=== PATIENT | male | born 1980 | race Caucasian/White ===

== ENCOUNTER 2017-08-24 12:11 | Emergency (ER) | payer MEDICAID, MEDICARE ==
[2017-08-24 12:23] VITALS: TEMP 97.9
[2017-08-24] MEDS ORDERED: ASPIRIN 81 MG PO STA (12:30)
[2017-08-24] MEDS ORDERED: ORPHENADRINE 30 MG/ML 2 ML VIAL IVP STA (12:39)
[2017-08-24] MEDS ORDERED: KETOROLAC 30 MG/ML 1 ML VIAL IVP STA (12:39)
[2017-08-24 13:19] LABS: Basophils # (A) 0.1 k/uL (0-0.2); Basophils % (A) 1 %; CH 33.1; Eosinophils # (A) 0.2 k/uL (0-0.7); Eosinophils % (A) 4 %; HCT 50.5 % (39.0-53.0); HDW 2.28; HGB 16.4 gm/dL (13.0-17.5); Luc # (Auto) 0.11; Luc % (Auto) 2; Lymphocytes # (A) 1.8 k/uL (1.0-4.8); Lymphocytes % (A) 33 %; MCH 31.8 pg (25.0-35.0); MCHC 32.5 g/dL (31.0-37.0); MCV 97.8 fL (80.0-100.0); Mean Platelet Volume 7.5; Monocytes # (A) 0.5 k/uL (0-1.0); Monocytes % (A) 9 %; Neutrophils # (A) 2.8 k/uL (1.3-7.7); Neutrophils % (A) 51 %; RBC 5.16 m/uL (4.30-5.90); RDW 13.1 % (11.5-15.5); WBC 5.4 k/uL (3.8-10.6); WBC (Perox) 5.35
--- NOTE | 2017-08-24 13:26 | ED ---
Chest Pain HPI - General Chief Complaint: Chest Pain Stated Complaint: Chest Pain Time Seen by Provider: 08/24/17 12:25 Source: patient, RN notes reviewed Mode of arrival: ambulatory Limitations: no limitations - History of Present Illness Initial Comments: This a 37-year-old male presents emergency Department with chief complaint of pain behind his left shoulder blade. Patient states this has been present over the last 2-3 days. He states she's unsure if he injured it during working out. He states he does have some discomfort when he moves his shoulder. He states it feels like it's right underneath the tip of the shoulder blade. He denies any anterior chest pain. Patient states he has no cardiac history. States that he has a history of hypertension with no medications. Patient denies hyperlipidemia, smoking. He states he does have family history. Patient states she's been taking Nelson at home and states he tried supplement with some alcohol but did not help his pain. Patient denies any nausea, vomiting, diarrhea, constipation, abdominal pain, shortness breath, headache or dizziness - Related Data Home Medications Medication Instructions Recorded Confirmed Hydrocodone/Acetaminophen 1 tab PO QID PRN 06/25/14 08/24/17 [Hydrocodone/Acetaminophen 10-325] Omeprazole [PriLOSEC] 20 mg PO DAILY PRN 08/24/17 08/24/17 Venlafaxine HCl [Effexor XR] 225 mg PO DAILY 08/24/17 08/24/17 Allergies Allergy/AdvReac Type Severity Reaction Status Date / Time No Known Allergies Allergy Verified 08/24/17 12:39 Review of Systems ROS Statement: Those systems with pertinent positive or pertinent negative responses have been documented in the HPI. ROS Other: All systems not noted in ROS Statement are negative. EKG Findings - EKG Comments: EKG Findings:: EKG performed at 12:28 normal sinus rhythm with rate of 74 MA 160 QRS 92 QT/QTC 382/424 Past Medical History Additional Past Medical History / Comment(s): hiatal hernia History of Any Multi-Drug Resistant Organisms: C-DIFF Date of last positivie culture/infection: 2004 MDRO Source:: stool Past Surgical History: Orthopedic Surgery Past Psychological History: PTSD Smoking Status: Current every day smoker Past Alcohol Use History: Daily Past Drug Use History: None Reported General Exam Limitations: no limitations General appearance: alert, in no apparent distress Head exam: Present: atraumatic, normocephalic, normal inspection Eye exam: Present: normal appearance, PERRL, EOMI. Absent: scleral icterus, conjunctival injection, periorbital swelling Respiratory exam: Present: normal lung sounds bilaterally. Absent: respiratory distress, wheezes, rales, rhonchi, stridor, chest wall tenderness Cardiovascular Exam: Present: regular rate, normal rhythm, normal heart sounds. Absent: systolic murmur, diastolic murmur, rubs, gallop, clicks GI/Abdominal exam: Present: soft, normal bowel sounds. Absent: distended, tenderness, guarding, rebound, rigid Back exam: Present: other ( some tenderness along the left scapular region, in the muscular region) Neurological exam: Present: alert, oriented X3, CN II-XII intact, reflexes normal. Absent: motor sensory deficit Skin exam: Present: warm, dry, intact, normal color. Absent: rash Course Vital Signs 08/24/17 08/24/17 12:19 14:10 Temperature 97.9 F Pulse Rate 84 72 Respiratory 18 17 Rate Blood Pressure 157/99 140/92 O2 Sat by Pulse 100 98 Oximetry Chest Pain MDM - MDM 37-year-old male present emergency department for left shoulder pain. Patient has tenderness in the scapular region but the pain and subscapular region. Patient's EKG is unchanged from 3 years ago, lab work and troponin are negative at this time. Patient was offered admission for observation and evaluation with general manager [employer]. Patient states that he feels stable go home at this time. Patient was offered additional pain medication and muscle relaxer but states that he has this at home. Disposition Clinical Impression: Subscapular pain, Pain of left scapula Disposition: HOME SELF-CARE Condition: Stable Instructions: Shoulder Pain (ED) Additional Instructions: Please return to the Emergency Department if symptoms worsen or any other concerns. Referrals: Esa Sellers DO [Primary Care Provider] - 1-2 days Time of Disposition: 14:39
[2017-08-24 13:28] LABS: Partial Thromboplastin Time 25.6 sec (22.0-30.0); Prothrombin Time 10.4 sec (9.0-12.0)
[2017-08-24 13:36] LABS: ALT 138 U/L (21-72); AST 112 U/L (17-59); Alkaline Phosphatase 80 U/L (38-126); Amylase 33 U/L (30-110); Anion Gap 10 mmol/L; Blood Urea Nitrogen 15 mg/dL (9-20); Carbon Dioxide 24 mmol/L (22-30); Chloride 104 mmol/L (98-107); Glucose 98 mg/dL (74-99); Magnesium 2.1 mg/dL (1.6-2.3); Non-African American GFR(MDRD) >60 (>60 ml/min/1.73 sqM); Potassium 4.5 mmol/L (3.5-5.1); Sodium 138 mmol/L (137-145); Total Bilirubin 1.1 mg/dL (0.2-1.3); Total Protein 7.8 g/dL (6.3-8.2)
--- NOTE | 2017-08-24 13:37 | XR ---
EXAMINATION TYPE: XR chest 2V DATE OF EXAM: 08/24/2017 COMPARISON: Prior chest x-ray 09/15/2014 HISTORY: Chest pain TECHNIQUE: Frontal and lateral views of the chest are obtained. FINDINGS: There is no focal air space opacity, pleural effusion, or pneumothorax seen. The cardiac silhouette size is within normal limits. There are overlying cardiac leads. The osseous structures are intact. IMPRESSION: No acute cardiopulmonary process.
[2017-08-24 13:48] LABS: Creatine Kinase 98 U/L (55-170)
[2017-08-24 14:00] LABS: Creatine Kinase MB 0.5 ng/mL (0.0-2.4); Troponin I <0.012 ng/mL (0.000-0.034)
[2017-08-24 14:11] VITALS: RESP 17
[2017-08-24 14:49] VITALS: BP 136/93; PULSE 70
== END 2017-08-24 14:48 | disposition home or self-care (01) ==
LOC: EC 12:11
DX: M25.512 Pain in left shoulder (principal); I10 Essential (primary) hypertension; F17.200 Nicotine dependence, unspecified, uncomplicated; Z79.899 Other long term (current) drug therapy
CPT/HCPCS: 36415; 93005; 80053; 82150; 82550; 82553; 83690; 83735; 84484; 85025; 85610; 85730; 71020; 99285; 96374; 96375; J2360; J1885

== ENCOUNTER 2018-10-15 12:38 | Day surgery (SDC) | payer MEDICAID, MEDICARE ==
[2018-10-11 16:08] VITALS: BMI 31.1
[~2018-10-15 12:38] MED LIST: LACTATED RINGERS 1,000 ML IV SCH
[2018-10-15 12:57] VITALS: TEMP 97
[2018-10-15] MEDS ORDERED: LIDOCAINE 1% INJ 10MG/ML (20 ML MDV) ONE (13:15)
[2018-10-15] MEDS ORDERED: PROPOFOL 10 MG/ML 20 ML VIAL IV ONE (13:15)
--- NOTE | 2018-10-15 13:55 | P.OP ---
Date of Procedure: 10/15/18 Preoperative Diagnosis: Epigastric pain, change in bowel habits, rectal bleeding Postoperative Diagnosis: Same, mild esophagitis, mild gastritis Procedure(s) Performed: EGD with biopsy, colonoscopy with biopsy Anesthesia: MAC Surgeon: Jordana Moore Pathology: other Condition: stable Disposition: PACU Indications for Procedure: Patient presented with epigastric and abdominal pain along with change in bowel habits Description of Procedure: The patient's taken to the endoscopy suite were gastroscope is passed per mouth to the third and fourth portions of the duodenum. The pharynx is unremarkable. The upper esophagus is without evidence of esophagitis or mass lesion. There are some mild erythema of the distal esophagus and cold biopsies were obtained. The stomach shows some mild erythema in the antrum and cold biopsies were obtained. Otherwise the stomach, pylorus, duodenum without evidence of polyp, mass lesion, ulcer, other mucosal abnormality. The villous pattern of the duodenal appeared normal. Some cold biopsies were obtained to rule out villous blunting. He is then repositioned in a colonoscope is passed per rectum to the terminal ileum. He had good prep. There is some small internal hemorrhoid on retroflexion of the scope. Otherwise the colon and terminal ileum were without evidence of polyp, mass lesion, ulcer, other mucosal abnormality. Some random colonic biopsies were obtained to rule out microscopic colitis. He tolerated the procedure without difficulty and was taken recovery room in satisfactory condition. We'll call with the report of the biopsies. Plan - Discharge Summary New Discharge Prescriptions: No Action Hydrocodone/Acetaminophen [Hydrocodone/Acetaminophen 10-325] 1 tab PO QID PRN PRN Reason: Pain Venlafaxine HCl [Effexor XR] 225 mg PO DAILY Omeprazole [PriLOSEC] 20 mg PO DAILY PRN PRN Reason: Heartburn Discharge Medication List Hydrocodone/Acetaminophen [Hydrocodone/Acetaminophen 10-325] 1 tab PO QID PRN [History] Omeprazole [PriLOSEC] 20 mg PO DAILY PRN 08/24/17 [History] Venlafaxine HCl [Effexor XR] 225 mg PO DAILY 08/24/17 [History] Discharge Disposition: HOME SELF-CARE
[2018-10-15 14:02] VITALS: RESP 18
[2018-10-15 14:25] VITALS: BP 142/76; PULSE 80
== END 2018-10-15 14:30 | disposition home or self-care (01) ==
LOC: ORWHC2ENDO 12:38
PROVIDERS: ATTEND Surgery
DX: K29.70 Gastritis, unspecified, without bleeding (principal); K20.9 Esophagitis, unspecified; R10.13 Epigastric pain; R12 Heartburn; R19.4 Change in bowel habit; K62.5 Hemorrhage of anus and rectum; K64.8 Other hemorrhoids; K42.9 Umbilical hernia without obstruction or gangrene; F17.210 Nicotine dependence, cigarettes, uncomplicated; G89.29 Other chronic pain; Z79.899 Other long term (current) drug therapy
CPT/HCPCS: 88305; 45380; 43239; J2001; J2704; 45384

== ENCOUNTER 2019-08-13 03:19 | Emergency (ER) | payer MEDICAID, MEDICARE ==
[2019-08-13 03:29] VITALS: RESP 18; TEMP 97.8
[2019-08-13] MEDS ORDERED: HYDROcodone/APAP 7.5-325MG 1 EACH TAB PO ONE (04:02)
[2019-08-13] MEDS ORDERED: COLCHICINE 0.6 MG EACH PO STA (04:02)
[2019-08-13] MEDS ORDERED: predniSONE 20 MG TAB PO STA (04:02)
[2019-08-13] MEDS ORDERED: INDOMETHACIN 25 MG CAP PO STA (04:02)
--- NOTE | 2019-08-13 04:20 | ED ---
Lower Extremity Injury HPI - General Chief Complaint: Extremity Injury, Lower Stated Complaint: high blood pressure,gout Time Seen by Provider: 08/13/19 03:38 Source: patient Mode of arrival: wheelchair Limitations: no limitations, physical limitation - History of Present Illness Initial Comments: This patient is a 39-year-old man who presents to be evaluated for right foot pain and swelling. He states that his symptoms started approximately 3 days ago. Things were getting progressively worse so he was seen at the [facility] today. He states that while he was there he was diagnosed with having gout. He was given prescription for an anti-inflammatory, but he states that they wouldn't did not start any medications for him there. The patient states that after going home he noticed that he was feeling pain up towards his right ankle. Patient states that he does work out regularly. He states that he does drink daily. Patient denies any known injury to the foot. No fever or chills. MD Complaint: foot injury Onset/Timin -: days(s) Injury: Foot: Right, Toes: Right Place: home Severity: severe Improves With: nothing Worsens With: weight bearing, movement, palpation Associated Symptoms: swelling - Related Data Home Medications Medication Instructions Recorded Confirmed Hydrocodone/Acetaminophen 1 tab PO QID PRN 06/25/14 10/15/18 [Hydrocodone/Acetaminophen 10-325] Omeprazole [PriLOSEC] 20 mg PO DAILY PRN 08/24/17 10/15/18 Venlafaxine HCl [Effexor XR] 225 mg PO DAILY 08/24/17 10/15/18 Previous Rx's Medication Instructions Recorded Colchicine 0.6 mg PO Q1H #12 tablet 08/13/19 predniSONE 60 mg PO DAILY #30 tab 08/13/19 Allergies Allergy/AdvReac Type Severity Reaction Status Date / Time No Known Allergies Allergy Verified 08/13/19 03:29 Review of Systems ROS Statement: Those systems with pertinent positive or pertinent negative responses have been documented in the HPI. ROS Other: All systems not noted in ROS Statement are negative. Constitutional: Denies: fever, chills Respiratory: Denies: cough, dyspnea Cardiovascular: Denies: chest pain, palpitations Musculoskeletal: Reports: joint swelling, arthralgia Skin: Denies: rash Neurological: Denies: headache, weakness, numbness Past Medical History Past Medical History: GERD/Reflux Additional Past Medical History / Comment(s): elevated liver enzymes, hiatal hernia & umbical hernia, blood in stools recently History of Any Multi-Drug Resistant Organisms: C-DIFF Date of last positivie culture/infection: 2004 MDRO Source:: stool Past Surgical History: Orthopedic Surgery Additional Past Surgical History / Comment(s): repair of medial nerve left arm, colonoscopies Past Anesthesia/Blood Transfusion Reactions: No Reported Reaction Past Psychological History: PTSD Smoking Status: Current every day smoker Past Alcohol Use History: Abuse, Daily Past Drug Use History: None Reported - Past Family History Mother Family Medical History: No Reported History General Exam Limitations: no limitations, physical limitation General appearance: alert, in no apparent distress Head exam: Present: atraumatic, normocephalic Respiratory exam: Present: normal lung sounds bilaterally. Absent: respiratory distress, wheezes, rales, rhonchi, stridor Cardiovascular Exam: Present: regular rate, normal rhythm, normal heart sounds. Absent: systolic murmur, diastolic murmur, rubs, gallop Extremities exam: Present: other (Patient has erythema, warmth, soft tissue swelling and tenderness to the right first MTP joint. There is no break in the skin. Symptoms worsened with palpation or with range of motion.) Neurological exam: Present: alert. Absent: motor sensory deficit Skin exam: Present: warm, dry, intact, erythema. Absent: rash Course Vital Signs 08/13/19 08/13/19 03:26 04:22 Temperature 97.8 F Pulse Rate 80 82 Respiratory 18 18 Rate Blood Pressure 155/98 142/94 O2 Sat by Pulse 99 97 Oximetry Medical Decision Making - Medical Decision Making Patient is a 39-year-old man with textbook resent patient of gout. He is started on medications here and then requests to go home. We discussed return p arameters, the appropriate further care and follow-up. Disposition Clinical Impression: Gout Disposition: HOME SELF-CARE Condition: Good Instructions (If sedation given, give patient instructions): Low Purine Diet (ED), Gout (ED) Prescriptions: Colchicine 0.6 mg PO Q1H #12 tablet predniSONE 60 mg PO DAILY #30 tab Is patient prescribed a controlled substance at d/c from ED?: No When asked, does pt state using other controlled substances?: No Referrals: [facility] [Primary Care Provider] - 1-2 days
[2019-08-13 04:22] VITALS: BP 142/94; PULSE 82
== END 2019-08-13 04:41 | disposition home or self-care (01) ==
LOC: EC 03:19
DX: M10.9 Gout, unspecified (principal); S99.921A Unspecified injury of right foot, initial encounter; K21.9 Gastro-esophageal reflux disease without esophagitis; F43.10 Post-traumatic stress disorder, unspecified; Z79.899 Other long term (current) drug therapy; F17.200 Nicotine dependence, unspecified, uncomplicated; X58.XXXA Exposure to other specified factors, initial encounter
CPT/HCPCS: 99283; J7512

== ENCOUNTER → 2019-09-09 | Outpatient (CLI) | payer MEDICAID, MEDICARE ==
--- NOTE | 2019-09-09 12:47 | EST ---
EXERCISE STRESS AGE: 39 SEX: M HT: 69" WT: 212 PROTOCOL: Alexander Stress Test STAGE: 4 DURATION OF EXERCISE: 9:30 HEART RATE REST: 83 BLOOD PRESSURE REST: 138/99 MAXIMUM HEART RATE ACHIEVED: 157 MAXIMUM BLOOD PRESSURE: 204/105 85% MPHR: 154 100% MPHR: 181 METS: 11.1 INDICATIONS: Chest pain. CLINICAL INFORMATION: Baseline EKG shows sinus rhythm, normal axis, normal intervals. Patient exercised on Alexander protocol for a total of 9.5 minutes achieving 11 METS, 86% of predicted maximal heart rate without chest pain or diagnostic ST-segment depression. CONCLUSION: 1. Excellent exercise tolerance. 2. Negative stress test by EKG criteria. MMODL / IJN: [id number] /
== END | disposition home or self-care (01) ==
LOC: RADNMMAIN 10:36
PROVIDERS: ATTEND Family Medicine
DX: I10 Essential (primary) hypertension (principal)
CPT/HCPCS: 93017

== ENCOUNTER 2020-06-18 20:42 | Emergency (ER) | payer MEDICARE, MEDICAID ==
[2020-06-18 20:51] VITALS: BP 164/100; PULSE 91; RESP 20; TEMP 98.2
[2020-06-18] MEDS ORDERED: predniSONE 20 MG TAB PO STA (21:29)
[2020-06-18] MEDS ORDERED: COLCHICINE 0.6 MG EACH PO STA (21:30)
[2020-06-18] MEDS ORDERED: INDOMETHACIN 25 MG CAP PO STA (21:30)
--- NOTE | 2020-06-18 21:35 | ED ---
General Adult HPI - General Chief complaint: Extremity Injury, Lower Stated complaint: Gout - L Foot Pain Time Seen by Provider: 06/18/20 20:58 Source: patient, family Mode of arrival: ambulatory Limitations: no limitations - History of Present Illness Initial comments: 39-year-old male with a past medical history of GERD, elevated liver enzymes, hiatal hernia, gout presents to the emergency department for a chief of gout attack. Patient reports that his gout has been acting up for the past 2 days. States it is in his left foot. States this has happened before he came here and had a cocktail and he felt better. Patient did take indomethacin and colchicine earlier today. He only took indomethacin once. He only took colchicine once. He denies fevers or chills. Patient has no other complaints at this time including shortness of breath, chest pain, abdominal pain, nausea or vomiting, headache, or visual changes. - Related Data Home Medications Medication Instructions Recorded Confirmed Hydrocodone/Acetaminophen 1 tab PO QID PRN 06/25/14 10/15/18 [Hydrocodone/Acetaminophen 10-325] Omeprazole [PriLOSEC] 20 mg PO DAILY PRN 08/24/17 10/15/18 Venlafaxine HCl [Effexor XR] 225 mg PO DAILY 08/24/17 10/15/18 Previous Rx's Medication Instructions Recorded Colchicine 0.6 mg PO Q1H #12 tablet 08/13/19 predniSONE 60 mg PO DAILY #30 tab 08/13/19 Allergies Allergy/AdvReac Type Severity Reaction Status Date / Time No Known Allergies Allergy Verified 06/18/20 20:50 Review of Systems ROS Statement: Those systems with pertinent positive or pertinent negative responses have been documented in the HPI. ROS Other: All systems not noted in ROS Statement are negative. Past Medical History Past Medical History: GERD/Reflux Additional Past Medical History / Comment(s): elevated liver enzymes, hiatal hernia & umbical hernia, blood in stools recently, Gout History of Any Multi-Drug Resistant Organisms: C-DIFF Date of last positivie culture/infection: 2004 MDRO Source:: stool Past Surgical History: Orthopedic Surgery Additional Past Surgical History / Comment(s): repair of medial nerve left arm, colonoscopies Past Anesthesia/Blood Transfusion Reactions: No Reported Reaction Past Psychological History: PTSD Smoking Status: Current every day smoker Past Alcohol Use History: Abuse, Daily Past Drug Use History: None Reported - Past Family History Mother Family Medical History: No Reported History General Exam Limitations: no limitations General appearance: alert, in no apparent distress Head exam: Present: atraumatic, normocephalic, normal inspection Eye exam: Present: normal appearance ENT exam: Present: normal exam, mucous membranes moist Neck exam: Present: normal inspection, full ROM. Absent: tenderness, meningismus, lymphadenopathy Respiratory exam: Present: normal lung sounds bilaterally. Absent: respiratory distress, wheezes, rales, rhonchi, stridor Cardiovascular Exam: Present: regular rate, normal rhythm, normal heart sounds. Absent: systolic murmur, diastolic murmur, rubs, gallop, clicks GI/Abdominal exam: Present: soft, normal bowel sounds. Absent: distended, tenderness, guarding, rebound, rigid Extremities exam: Present: tenderness (Tenderness noted to the left great toe with erythema.), normal capillary refill (Capillary refill less than 2 seconds, DP pulse 2+ in the left lower extremity) Neurological exam: Present: alert Course Vital Signs 06/18/20 20:46 Temperature 98.2 F Pulse Rate 91 Respiratory 20 Rate Blood Pressure 164/100 O2 Sat by Pulse 100 Oximetry Medical Decision Making - Medical Decision Making Patient will be treated with colchicine, prednisone, indomethacin. He will take his indomethacin as prescribed 3 times per day at home. He will follow up with primary care. He'll return for any worsening symptoms. 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 Disposition Clinical Impression: Gout attack Disposition: HOME SELF-CARE Condition: Good Instructions (If sedation given, give patient instructions): Gout (ED) Additional Instructions: Please take your indomethacin 3 times daily for 3-5 days. Do not drink alcohol or eat red meat. Follow-up with your doctor. Return for any worsening symptoms. Is patient prescribed a controlled substance at d/c from ED?: No Referrals: Liam Miramontes DO [Primary Care Provider] - 1-2 days Time of Disposition: 21:34
== END 2020-06-18 22:22 | disposition home or self-care (01) ==
LOC: EC 20:42
DX: M10.9 Gout, unspecified (principal); K21.9 Gastro-esophageal reflux disease without esophagitis; F43.10 Post-traumatic stress disorder, unspecified; F17.200 Nicotine dependence, unspecified, uncomplicated; F10.10 Alcohol abuse, uncomplicated; Z79.899 Other long term (current) drug therapy; Z98.890 Other specified postprocedural states
CPT/HCPCS: 99283; J7512

== ENCOUNTER 2022-08-14 16:34 | Emergency (ER) | payer MEDICARE, OTHER ==
[2022-08-14 17:03] VITALS: TEMP 98.4
[2022-08-14] MEDS ORDERED: chlordiazePOXIDE 25 MG CAP PO PRN ×4 (17:38)
[2022-08-14] MEDS ORDERED: THIAMINE 100 MG/ML 2 ML VIAL IM STA (17:38)
[2022-08-14] MEDS ORDERED: KETOROLAC 15 MG/ML 1 ML VIAL IVP STA (17:38)
[2022-08-14] MEDS ORDERED: FOLIC ACID 1 MG TAB PO SCH (17:45)
[2022-08-14 18:09] LABS: Basophils # (A) 0.1 k/uL (0-0.2); Basophils % (A) 1 %; Eosinophils # (A) 0.1 k/uL (0-0.7); Eosinophils % (A) 1 %; HCT 47.3 % (39.0-53.0); HGB 16.4 gm/dL (13.0-17.5); Lymphocytes # (A) 0.6 k/uL (1.0-4.8); Lymphocytes % (A) 11 %; MCH 34.8 pg (25.0-35.0); MCHC 34.7 g/dL (31.0-37.0); MCV 100.5 fL (80.0-100.0); Mean Platelet Volume 7.9; Monocytes # (A) 0.4 k/uL (0-1.0); Monocytes % (A) 7 %; Neutrophils # (A) 4.2 k/uL (1.3-7.7); Neutrophils % (A) 78 %; Platelet Count 207 k/uL (150-450); RBC 4.71 m/uL (4.30-5.90); WBC 5.4 k/uL (3.8-10.6)
[2022-08-14 18:18] LABS: ALT 104 U/L (4-49); AST 148 U/L (17-59); African American GFR (CKD) >90 (>60 ml/min/1.73 sqM); Albumin 5.1 g/dL (3.5-5.0); Alkaline Phosphatase 124 U/L (38-126); Anion Gap 8 mmol/L; Blood Urea Nitrogen 11 mg/dL (9-20); Calcium 9.5 mg/dL (8.4-10.2); Carbon Dioxide 25 mmol/L (22-30); Chloride 106 mmol/L (98-107); Glucose 94 mg/dL (74-99); Non-African American GFR(CKD) >90 (>60 ml/min/1.73 sqM); Potassium 4.2 mmol/L (3.5-5.1); Sodium 139 mmol/L (137-145); Total Bilirubin 0.9 mg/dL (0.2-1.3); Total Protein 7.7 g/dL (6.3-8.2)
--- NOTE | 2022-08-14 18:37 | XR ---
EXAMINATION TYPE: XR chest 2V DATE OF EXAM: 08/14/2022 COMPARISON: 08/24/2017 HISTORY: Chest pain TECHNIQUE: 2 view FINDINGS: Heart and mediastinum are normal. Lungs are clear. Diaphragm is normal. Bony thorax is inta ct. IMPRESSION: Normal chest. No change.
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
[2022-08-14 19:40] VITALS: BP 153/74; PULSE 91; RESP 17
[2022-08-15] MEDS ORDERED: THIAMINE 100 MG TAB PO SCH (09:00)
== END 2022-08-14 19:40 | disposition home or self-care (01) ==
LOC: EC 16:34
DX: S29.001A Unspecified injury of muscle and tendon of front wall of thorax, initial encounter (principal); K21.9 Gastro-esophageal reflux disease without esophagitis; F17.200 Nicotine dependence, unspecified, uncomplicated; Z79.83 Long term (current) use of bisphosphonates; V18.0XXA Pedal cycle driver injured in noncollision transport accident in nontraffic accident, initial encounter
CPT/HCPCS: 99285; 96374; 96372; 36415; 93005; 80053; 84484; 85025; 71046; J3411; J1885

== ENCOUNTER 2023-02-27 16:12 | Emergency (ER) | payer OTHER, MEDICARE ==
[2023-02-27 16:29] VITALS: BP 159/101; PULSE 102; RESP 18; TEMP 98
[2023-02-27] MEDS ORDERED: LORazepam 1 MG TAB PO STA (17:14)
--- NOTE | 2023-02-27 17:15 | ED ---
General Adult HPI - General Chief complaint: Alcohol Stated complaint: DETOX Time Seen by Provider: 02/27/23 16:45 Source: patient, family, RN notes reviewed Mode of arrival: ambulatory Limitations: no limitations - History of Present Illness Initial comments: Patient is a pleasant 42-year-old male presenting to the emergency department desiring to discontinue alcohol. Patient feels he needs an abuse. Patient feels he needs to be punished when he drinks. Patient previously was at [facility] for cocaine use and originally did not want to go back there. Patient does admit to drinking multiple beers today. Patient does not feel he is going through detox at this time however is worried that he maintain the future. No suicidal or homicidal thoughts. - Related Data Home Medications Medication Instructions Recorded Confirmed Hydrocodone/Acetaminophen 1 tab PO QID PRN 06/25/14 10/15/18 [Hydrocodone/Acetaminophen 10-325] Omeprazole [PriLOSEC] 20 mg PO DAILY PRN 08/24/17 10/15/18 Venlafaxine HCl [Effexor XR] 225 mg PO DAILY 08/24/17 10/15/18 Previous Rx's Medication Instructions Recorded Colchicine 0.6 mg PO Q1H #12 tablet 08/13/19 predniSONE 60 mg PO DAILY #30 tab 08/13/19 Allergies Allergy/AdvReac Type Severity Reaction Status Date / Time No Known Allergies Allergy Verified 02/27/23 16:26 Review of Systems ROS Statement: Those systems with pertinent positive or pertinent negative responses have been documented in the HPI. ROS Other: All systems not noted in ROS Statement are negative. Constitutional: Denies: fever Eyes: Denies: eye pain ENT: Denies: ear pain Respiratory: Denies: cough Cardiovascular: Denies: chest pain Endocrine: Denies: fatigue Gastrointestinal: Denies: abdominal pain Genitourinary: Denies: dysuria Past Medical History Past Medical History: GERD/Reflux Additional Past Medical History / Comment(s): elevated liver enzymes, hiatal hernia & umbical hernia, blood in stools recently, Gout History of Any Multi-Drug Resistant Organisms: C-DIFF Date of last positivie culture/infection: 2004 MDRO Source:: stool Past Surgical History: Orthopedic Surgery Additional Past Surgical History / Comment(s): repair of medial nerve left arm, colonoscopies Past Anesthesia/Blood Transfusion Reactions: No Reported Reaction Past Psychological History: PTSD Smoking Status: Current every day smoker Past Alcohol Use History: Abuse, Daily Past Drug Use History: None Reported - Past Family History Mother Family Medical History: No Reported History General Exam Limitations: no limitations General appearance: alert, in no apparent distress Head exam: Present: atraumatic Eye exam: Present: normal appearance Respiratory exam: Present: normal lung sounds bilaterally Cardiovascular Exam: Present: regular rate, normal rhythm GI/Abdominal exam: Present: soft. Absent: tenderness Extremities exam: Present: normal inspection Neurological exam: Present: alert Psychiatric exam: Present: normal affect, normal mood Skin exam: Present: normal color Course Vital Signs 02/27/23 16:26 Temperature 98 F Pulse Rate 102 H Respiratory 18 Rate Blood Pressure 159/101 O2 Sat by Pulse 97 Oximetry Medical Decision Making - Medical Decision Making Was pt. sent in by a medical professional or institution (, PA, NANOTECHNOLOGY ENGINEERING TECHNICIAN, urgent care, hospital, or fci...) When possible be specific @ -No Did you speak to anyone other than the patient for history (EMS, parent, family, police, friend...)? What history was obtained from this source @ - is present and helps provide history including amount of alcohol the patient drinks. Did you review nursing and triage notes (agree or disagree)? Why? @ -I reviewed and agree with nursing and triage notes Were old charts reviewed (outside hosp., previous admission, EMS record, old EKG, old radiological studies, urgent care reports/EKG's, fci records)? Report findings @ -No old charts were reviewed Differential Diagnosis (chest pain, altered mental status, abdominal pain women, abdominal pain men, vaginal bleeding, weakness, fever, dyspnea, syncope, headache, dizziness, GI bleed, back pain, seizure, CVA, palpatations, mental health)? @ -not applicable EKG interpreted by me (3pts min.). @ -As above X-rays interpreted by me (1pt min.). @ -None done CT interpreted by me (1pt min.). @ -None done U/S interpreted by me (1pt. min.). @ -None done What testing was considered but not performed or refused? (CT, X-rays, U/S, labs)? Why? @ -None What meds were considered but not given or refused? Why? @ -None Did you discuss the management of the patient with other professionals (professionals i.e. , PA, NANOTECHNOLOGY ENGINEERING TECHNICIAN, lab, RT, psych nurse, social welfare administrator, medical transcription editor, teacher, financial officer, rn field case manager)? Give summary @ -No Was smoking cessation discussed for >3mins.? @ -No Was critical care preformed (if so, how long)? @ -No Were there social determinants of health that impacted care today? How? (Homelessness, low income, unemployed, alcoholism, drug addiction, transportation, low edu. Level, literacy, decrease access to med. care, fdc, rehab)? @ -No Was there de-escalation of care discussed even if they declined (Discuss DNR or withdrawal of care, Hospice)? DNR status @ -No What co-morbidities impacted this encounter? (DM, HTN, Smoking, COPD, CAD, Cancer, CVA, ARF, Chemo, Hep., AIDS, mental health diagnosis, sleep apnea, morbid obesity)? @ -None Was patient admitted / discharged? Hospital course, mention meds given and route, prescriptions, significant lab abnormalities, going to OR and other pertinent info. @ -Patient will be discharged and recommended follow-up with rehab facility. Patient will be given an Ativan to cut and take it home. He is instructed regarding this. Undiagnosed new problem with uncertain prognosis? @ -No Drug Therapy requiring intensive monitoring for toxicity (Heparin, Nitro, Insulin, Cardizem)? @ -No Were any procedures done? @ -No Diagnosis/symptom? @ -Alcohol abuse Acute, or Chronic, or Acute on Chronic? @ -Acute Uncomplicated (without systemic symptoms) or Complicated (systemic symptoms)? @ -default Side effects of treatment? @ -No Exacerbation, Progression, or Severe Exacerbation? @ -No Poses a threat to life or bodily function? How? (Chest pain, [place], [place], pneumonia, PE, COPD, DKA, ARF, appy, cholecystitis, CVA, Diverticulitis, Homicidal, Suicidal, threat to staff... and all critical care pts) @ -No Disposition Clinical Impression: Alcoholic intoxication, Alcohol abuse Disposition: HOME SELF-CARE Condition: Stable Instructions (If sedation given, give patient instructions): Alcohol Intoxication (ED), Alcohol Withdrawal (ED) Additional Instructions: Discontinue all alcohol use. You may cut the Ativan into quarters and take this over the next 2 days. Please follow-up with substance abuse rehab, list provided. Return for increased heart rate, uncontrolled vomiting, worsening or change in symptoms, confusion or other concerns. Is patient prescribed a controlled substance at d/c from ED?: No Referrals: Liam Miramontes DO [Primary Care Provider] - 1-2 days Forms: AA Meetings [facility], Outpatient Counseling, In Substance Abuse Facilities, AA Meetings [address] - [facility] Time of Disposition: 17:15
== END 2023-02-27 17:30 | disposition home or self-care (01) ==
LOC: EC 16:12
DX: F10.129 Alcohol abuse with intoxication, unspecified (principal); K21.9 Gastro-esophageal reflux disease without esophagitis; F17.200 Nicotine dependence, unspecified, uncomplicated; Z79.899 Other long term (current) drug therapy
CPT/HCPCS: 99283

== ENCOUNTER 2024-02-13 19:52 | Emergency (ER) | payer OTHER, MEDICARE ==
[2024-02-13 19:58] VITALS: TEMP 98.2
--- NOTE | 2024-02-13 21:22 | ED ---
Abdominal Pain HPI - General Chief Complaint: Abdominal Pain Stated Complaint: abd pain Time Seen by Provider: 02/13/24 21:01 Source: patient Mode of arrival: ambulatory Limitations: no limitations - History of Present Illness Initial Comments: 43-year-old male presenting with chief complaint of abdominal pain. Patient admits to sharp and burning pain in the epigastric and right upper quadrant region. Pain has been ongoing for the last day. He states he has been unable to eat due to the pain. He has tried taking Pepto-Bismol and omeprazole without relief. He denies any nausea, vomiting, diarrhea. No hematochezia or melena. No fevers. No no chest pain or difficulty breathing. - Related Data Home Medications Medication Instructions Recorded Confirmed Hydrocodone/Acetaminophen 1 tab PO QID 06/25/14 02/27/23 [Hydrocodone/Acetaminophen 10-325] Clobetasol Propionate [Temovate 1 applic TOPICAL BID PRN 02/27/23 02/27/23 0.05% Oint] amLODIPine [Norvasc] 5 mg PO BID 02/27/23 02/27/23 methylPREDNISolone [Medrol Dose See Taper PO DIRECTED 02/27/23 02/27/23 Pack] Previous Rx's Medication Instructions Recorded Ondansetron Odt [Zofran Odt] 4 mg PO Q8HR PRN #20 tab 02/13/24 Allergies Allergy/AdvReac Type Severity Reaction Status Date / Time No Known Allergies Allergy Verified 02/13/24 19:55 Review of Systems ROS Statement: Those systems with pertinent positive or pertinent negative responses have been documented in the HPI. ROS Other: All systems not noted in ROS Statement are negative. Past Medical History Past Medical History: GERD/Reflux Additional Past Medical History / Comment(s): elevated liver enzymes, hiatal hernia & umbical hernia, blood in stools recently, Gout History of Any Multi-Drug Resistant Organisms: C-DIFF Date of last positivie culture/infection: 2004 MDRO Source:: stool Past Surgical History: Orthopedic Surgery Additional Past Surgical History / Comment(s): repair of medial nerve left arm, colonoscopies Past Anesthesia/Blood Transfusion Reactions: No Reported Reaction Past Psychological History: PTSD Smoking Status: Current every day smoker Past Alcohol Use History: Abuse, Daily Past Drug Use History: None Reported - Past Family History Mother Family Medical History: No Reported History General Exam Limitations: no limitations General appearance: alert, in no apparent distress Head exam: Present: atraumatic, normocephalic Eye exam: Present: normal appearance, EOMI Neck exam: Present: normal inspection. Absent: meningismus Respiratory exam: Present: normal lung sounds bilaterally. Absent: respiratory distress, wheezes, rales, rhonchi, stridor Cardiovascular Exam: Present: regular rate, normal rhythm, normal heart sounds. Absent: systolic murmur, diastolic murmur, rubs, gallop, clicks GI/Abdominal exam: Present: soft, tenderness, guarding. Absent: distended, rebound, rigid Neurological exam: Present: alert, oriented X3 Psychiatric exam: Present: normal affect, normal mood Skin exam: Present: warm, dry Course Vital Signs 02/13/24 02/13/24 02/14/24 19:53 22:27 00:00 Temperature 98.2 F Pulse Rate 78 93 68 Respiratory 18 18 16 Rate Blood Pressure 153/94 163/102 141/96 O2 Sat by Pulse 100 100 100 Oximetry Medical Decision Making - Medical Decision Making Was pt. sent in by a medical professional or institution (, PA, CAREER DEVELOPMENT COORDINATOR, urgent care, hospital, or senior care...) When possible be specific @ -No Did you speak to anyone other than the patient for history (EMS, parent, family, police, friend...)? What history was obtained from this source @ -No Did you review nursing and triage notes (agree or disagree)? Why? @ -I reviewed and agree with nursing and triage notes Were old charts reviewed (outside hosp., previous admission, EMS record, old EKG, old radiological studies, urgent care reports/EKG's, senior care records)? Report findings @ -No old charts were reviewed Differential Diagnosis (chest pain, altered mental status, abdominal pain women, abdominal pain men, vaginal bleeding, weakness, fever, dyspnea, syncope, headache, dizziness, GI bleed, back pain, seizure, CVA, palpatations, mental health, musculoskeletal)? @ -MDM Differential Abdominal Pain Men: Appendicitis, cholecystitis, diverticulosis, ischemic bowel, pancreatitis, hepatitis, UTI, gastroenteritis, AAA, incarcerated hernia, bowel obstruction, constipation, inflammatory bowel, hepatitis, peptic ulcer disease, splenic infarction, perforated viscus, testicular torsion... This is not meant to be an all-inclusive list EKG interpreted by me (3pts min.). @ -As above X-rays interpreted by me (1pt min.). @ -None done CT interpreted by me (1pt min.). @ -None done U/S interpreted by me (1pt. min.). @ -Ultrasound shows hepatomegaly and hepatic steatosis What testing was considered but not performed or refused? (CT, X-rays, U/S, labs)? Why? @ -None What meds were considered but not given or refused? Why? @ -None Did you discuss the management of the patient with other professionals (professionals i.e. , PA, CAREER DEVELOPMENT COORDINATOR, lab, RT, psych nurse, social service worker, acquisition marketing coordinator, teacher, education officer, family caseworker)? Give summary @ -No Was smoking cessation discussed for >3mins.? @ -No Was critical care preformed (if so, how long)? @ -No Were there social determinants of health that impacted care today? How? (Homelessness, low income, unemployed, alcoholism, drug addiction, transportation, low edu. Level, literacy, decrease access to med. care, correction, rehab)? @ -No Was there de-escalation of care discussed even if they declined (Discuss DNR or withdrawal of care, Hospice)? DNR status @ -No What co-morbidities impacted this encounter? (DM, HTN, Smoking, COPD, CAD, Cancer, CVA, ARF, Chemo, Hep., AIDS, mental health diagnosis, sleep apnea, morbid obesity)? @ -None Was patient admitted / discharged? Hospital course, mention meds given and route, prescriptions, significant lab abnormalities, going to OR and other pertinent info. @ -43-year-old male presenting with chief complaint of burning pain to the epigastric and right upper quadrant. History and physical exam are conducted. Patient has an elevated bilirubin and LFTs, likely attributed to his daily alcohol use. Lipase is 324. Urine shows no infectious process or bleeding. Ultrasound is positive for hepatic steatosis and hepatomegaly. On reassessment patient reports significant improvement in his pain. He is educated on today's results. Likely his pain is due to a combination of inflammation of the pancreas due to chronic alcohol use and hepatic steatosis. He is educated on supportive management at home. Instructed to follow liquid diet for the next 1 to 2 days. Provided with pain medication. Discharged home. Follow-up with PCP. Report back to ER with any new or worsening symptoms. Discussed return parameters and answered all questions. Patient conveyed verbal understanding and agreed to the plan. I discussed this case in detail with my attending Dr. Cruz Undiagnosed new problem with uncertain prognosis? @ -No Drug Therapy requiring intensive monitoring for toxicity (Heparin, Nitro, Insulin, Cardizem)? @ -No Were any procedures done? @ -No Diagnosis/symptom? @ -Alcoholic hepatitis, abdominal pain, pancreatitis Acute, or Chronic, or Acute on Chronic? @ -Acute Uncomplicated (without systemic symptoms) or Complicated (systemic symptoms)? @ -Uncomplicated Side effects of treatment? @ -No Exacerbation, Progression, or Severe Exacerbation? @ -No Poses a threat to life or bodily function? How? (Chest pain, [place], [place], pneumonia, PE, COPD, DKA, ARF, appy, cholecystitis, CVA, Diverticulitis, Homicidal, Suicidal, threat to staff... and all critical care pts) @ -Low likelihood - Lab Data Result diagrams: 02/13/24 21:33 02/13/24 21:33 Lab Results 02/13/24 02/13/24 02/13/24 Range/Units 21:28 21:33 21:33 WBC 3.4 L (3.8-10.6) k/uL RBC 3.81 L (4.30-5.90) m/uL Hgb 13.7 (13.0-17.5) gm/dL Hct 39.6 (39.0-53.0) % MCV 104.0 H (80.0-100.0) fL MCH 36.0 H (25.0-35.0) pg MCHC 34.6 (31.0-37.0) g/dL RDW 11.2 L (11.5-15.5) % Plt Count 99 L (150-450) k/uL MPV 9.0 Neutrophils % 60 % Lymphocytes % 21 % Monocytes % 12 % Eosinophils % 2 % Basophils % 1 % Neutrophils # 2.1 (1.3-7.7) k/uL Lymphocytes # 0.7 L (1.0-4.8) k/uL Monocytes # 0.4 (0-1.0) k/uL Eosinophils # 0.1 (0-0.7) k/uL Basophils # 0.0 (0-0.2) k/uL Manual Slide Review Performed Large Platelets Present Sodium 136 L (137-145) mmol/L Potassium 4.0 (3.5-5.1) mmol/L Chloride 103 (98-107) mmol/L Carbon Dioxide 22 (22-30) mmol/L Anion Gap 11 mmol/L BUN <2 L (9-20) mg/dL Creatinine 0.52 L (0.66-1.25) mg/dL Est GFR (CKD-EPI)AfAm >90 (>60 ml/min/1.73 sqM) Est GFR (CKD-EPI)NonAf >90 (>60 ml/min/1.73 sqM) Glucose 82 (74-99) mg/dL Plasma Lactic Acid Lucio (0.7-2.0) mmol/L Calcium 9.3 (8.4-10.2) mg/dL Total Bilirubin 1.5 H (0.2-1.3) mg/dL AST 167 H (17-59) U/L ALT 90 H (4-49) U/L Alkaline Phosphatase 133 H (38-126) U/L Troponin I (0.000-0.034) ng/mL Total Protein 7.2 (6.3-8.2) g/dL Albumin 4.3 (3.5-5.0) g/dL Amylase 40 (30-110) U/L Lipase 324 H (23-300) U/L Urine Color Colorless Urine Appearance Clear (Clear) Urine pH 5.5 (5.0-8.0) Ur Specific [place] 1.002 (1.001-1.035) Urine Protein Negative (Negative) Urine Glucose (UA) Negative (Negative) Urine Ketones Negative (Negative) Urine Blood Negative (Negative) Urine Nitrite Negative (Negative) Urine Bilirubin Negative (Negative) Urine Urobilinogen <2.0 (<2.0) mg/dL Ur Leukocyte Esterase Negative (Negative) 02/13/24 02/13/24 Range/Units 21:33 21:33 WBC (3.8-10.6) k/uL RBC (4.30-5.90) m/uL Hgb (13.0-17.5) gm/dL Hct (39.0-53.0) % MCV (80.0-100.0) fL MCH (25.0-35.0) pg MCHC (31.0-37.0) g/dL RDW (11.5-15.5) % Plt Count (150-450) k/uL MPV Neutrophils % % Lymphocytes % % Monocytes % % Eosinophils % % Basophils % % Neutrophils # (1.3-7.7) k/uL Lymphocytes # (1.0-4.8) k/uL Monocytes # (0-1.0) k/uL Eosinophils # (0-0.7) k/uL Basophils # (0-0.2) k/uL Manual Slide Review Large Platelets Sodium (137-145) mmol/L Potassium (3.5-5.1) mmol/L Chloride (98-107) mmol/L Carbon Dioxide (22-30) mmol/L Anion Gap mmol/L BUN (9-20) mg/dL Creatinine (0.66-1.25) mg/dL Est GFR (CKD-EPI)AfAm (>60 ml/min/1.73 sqM) Est GFR (CKD-EPI)NonAf (>60 ml/min/1.73 sqM) Glucose (74-99) mg/dL Plasma Lactic Acid Lucio 1.9 (0.7-2.0) mmol/L Calcium (8.4-10.2) mg/dL Total Bilirubin (0.2-1.3) mg/dL AST (17-59) U/L ALT (4-49) U/L Alkaline Phosphatase (38-126) U/L Troponin I <0.012 (0.000-0.034) ng/mL Total Protein (6.3-8.2) g/dL Albumin (3.5-5.0) g/dL Amylase (30-110) U/L Lipase (23-300) U/L Urine Color Urine Appearance (Clear) Urine pH (5.0-8.0) Ur Specific [place] (1.001-1.035) Urine Protein (Negative) Urine Glucose (UA) (Negative) Urine Ketones (Negative) Urine Blood (Negative) Urine Nitrite (Negative) Urine Bilirubin (Negative) Urine Urobilinogen (<2.0) mg/dL Ur Leukocyte Esterase (Negative) Disposition Clinical Impression: Abdominal pain, Alcoholic hepatitis, Pancreatitis Disposition: HOME SELF-CARE Condition: Good Instructions (If sedation given, give patient instructions): Pancreatitis (ED), Abdominal Pain (ED), Full Liquid Diet (DC) Additional Instructions: Follow-up with PCP. Report back to ER with any new or worsening symptoms. Take medication as prescribed. Follow liquid diet for the next 1 to 2 days and gradually reintroduce regular foods. Prescriptions: Ondansetron Odt [Zofran Odt] 4 mg PO Q8HR PRN #20 tab PRN Reason: Nausea Is patient prescribed a controlled substance at d/c from ED?: No Referrals: Liam Miramontes DO [Primary Care Provider] - 1-2 days Time of Disposition: 23:55
[2024-02-13] MEDS: SODIUM CHLORIDE 0.9% 1,000 ML IV STA (21:35)
[2024-02-13 21:38] LABS: Appearance,Urine Clear (Clear); Bilirubin,Urine Negative (Negative); Blood,Urine Negative (Negative); Color,Urine Colorless; Glucose,Urine (UA) Negative (Negative); Ketones,Urine Negative (Negative); Leukocyte Esterase,Urine Negative (Negative); Nitrite,Urine Negative (Negative); PH, Urine 5.5 (5.0-8.0); Protein,Urine Negative (Negative); Specific Gravity,Urine 1.002 (1.001-1.035); Urobilinogen,Urine <2.0 mg/dL (<2.0)
[2024-02-13] MEDS: ONDANSETRON 4 MG/2 ML VIAL IVP STA (21:46)
[2024-02-13] MEDS: HYDROmorphone 1 MG/ML 1 ML SYRINGE IVP STA (21:48)
[2024-02-13 22:04] LABS: Basophils % (A) 1 %; Eosinophils # (A) 0.1 k/uL (0-0.7); Eosinophils % (A) 2 %; HCT 39.6 % (39.0-53.0); HGB 13.7 gm/dL (13.0-17.5); Lymphocytes # (A) 0.7 k/uL (1.0-4.8); Lymphocytes % (A) 21 %; MCHC 34.6 g/dL (31.0-37.0); Monocytes # (A) 0.4 k/uL (0-1.0); Monocytes % (A) 12 %; Neutrophils # (A) 2.1 k/uL (1.3-7.7); Neutrophils % (A) 60 %; RBC 3.81 m/uL (4.30-5.90); RDW 11.2 % (11.5-15.5); WBC 3.4 k/uL (3.8-10.6)
--- NOTE | 2024-02-13 22:26 | US ---
EXAM: US Abdomen Limited, Right Upper Quadrant CLINICAL HISTORY: ITS.REASON US Reason: RUQ/epigastric pain TECHNIQUE: Real-time ultrasound of the right upper quadrant with image documentation. COMPARISON: No relevant prior studies available. FINDINGS: Liver: Liver measures 19.5 cm. Increased echogenicity. No focal lesion. Gallbladder: No stones in the gallbladder. No inflammatory changes. Negative Olmos's. Common bile duct: Unremarkable as visualized. No stones. Pancreas: Unremarkable as visualized. Right kidney: Unremarkable. No hydronephrosis. IMPRESSION: Hepatomegaly and hepatic steatosis.
[2024-02-13 22:27] LABS: Large Platelets Present
[2024-02-13 22:28] LABS: Platelet Count 99 k/uL (150-450)
[2024-02-13 22:47] LABS: ALT 90 U/L (4-49); AST 167 U/L (17-59); African American GFR (CKD) >90 (>60 ml/min/1.73 sqM); Albumin 4.3 g/dL (3.5-5.0); Alkaline Phosphatase 133 U/L (38-126); Amylase 40 U/L (30-110); Anion Gap 11 mmol/L; Blood Urea Nitrogen <2 mg/dL (9-20); Calcium 9.3 mg/dL (8.4-10.2); Carbon Dioxide 22 mmol/L (22-30); Chloride 103 mmol/L (98-107); Glucose 82 mg/dL (74-99); Lipase 324 U/L (23-300); Non-African American GFR(CKD) >90 (>60 ml/min/1.73 sqM); Sodium 136 mmol/L (137-145); Total Bilirubin 1.5 mg/dL (0.2-1.3); Total Protein 7.2 g/dL (6.3-8.2)
[2024-02-13] MEDS: FAMOTIDINE 20 MG/2 ML VIAL IV STA (22:51)
[2024-02-13] MEDS: MAG HYDROX/AL HYDROX/SIMETH 30 ML, HYOSCYAMINE ELIXIR 10 ML, LIDOCAINE VISCOUS 2% 10 ML PO STA (22:52)
[2024-02-14] MEDS: traMADol 50 MG STARTER PACK 3 TAB BTL PO STA (00:02)
[2024-02-14 00:55] VITALS: BP 141/96; PULSE 68; RESP 16
== END 2024-02-14 00:03 | disposition home or self-care (01) ==
LOC: EC 19:52
DX: K85.90 Acute pancreatitis without necrosis or infection, unspecified (principal); K70.10 Alcoholic hepatitis without ascites; F17.200 Nicotine dependence, unspecified, uncomplicated
CPT/HCPCS: 36415; 80053; 82150; 83605; 83690; 84484; 85025; 81003; 76705; 99284; 96374; 96375 ×2; 96361; J2405; J3490; J1170

== ENCOUNTER 2024-02-14 12:17 | Emergency (ER) | payer OTHER, MEDICARE ==
[2024-02-14] MEDS: SODIUM CHLORIDE 0.9% 2,000 ML IV STA (13:06)
[2024-02-14 13:12] LABS: Basophils % (A) 1 %; Eosinophils % (A) 1 %; HGB 14.7 gm/dL (13.0-17.5); Lymphocytes # (A) 0.5 k/uL (1.0-4.8); Lymphocytes % (A) 16 %; MCH 35.6 pg (25.0-35.0); MCHC 34.1 g/dL (31.0-37.0); MCV 104.4 fL (80.0-100.0); Macrocytosis Slight; Mean Platelet Volume 10.1; Monocytes # (A) 0.3 k/uL (0-1.0); Monocytes % (A) 8 %; Neutrophils # (A) 2.3 k/uL (1.3-7.7); Neutrophils % (A) 71 %; Platelet Count 100 k/uL (150-450); RBC 4.12 m/uL (4.30-5.90); RDW 11.4 % (11.5-15.5); WBC 3.3 k/uL (3.8-10.6)
[2024-02-14 13:41] LABS: ALT 88 U/L (4-49); AST 154 U/L (17-59); African American GFR (CKD) >90 (>60 ml/min/1.73 sqM); Albumin 4.8 g/dL (3.5-5.0); Alcohol <10 mg/dL; Alkaline Phosphatase 149 U/L (38-126); Anion Gap 10 mmol/L; Blood Urea Nitrogen 3 mg/dL (9-20); Calcium 9.6 mg/dL (8.4-10.2); Carbon Dioxide 22 mmol/L (22-30); Chloride 103 mmol/L (98-107); Glucose 107 mg/dL (74-99); Lipase 218 U/L (23-300); Magnesium 1.7 mg/dL (1.6-2.3); Non-African American GFR(CKD) >90 (>60 ml/min/1.73 sqM); Potassium 3.9 mmol/L (3.5-5.1); Sodium 135 mmol/L (137-145); Total Bilirubin 2.6 mg/dL (0.2-1.3); Total Protein 8.1 g/dL (6.3-8.2)
[2024-02-14] MEDS: ONDANSETRON 4 MG/2 ML VIAL IVP STA (13:41)
[2024-02-14] MEDS: LORazepam 2 MG/ML INJ IV STA (13:43)
[2024-02-14] MEDS: HYDROmorphone 0.5 MG/0.5 ML SYRINGE IVP STA (13:44)
[2024-02-14] MEDS: KETOROLAC 15 MG/ML 1 ML VIAL IVP STA (13:45)
--- NOTE | 2024-02-14 14:35 | ED ---
Abdominal Pain HPI - General Chief Complaint: Abdominal Pain Stated Complaint: abd pain Time Seen by Provider: 02/14/24 12:33 Source: patient, RN notes reviewed Mode of arrival: ambulatory Limitations: no limitations - History of Present Illness Initial Comments: 43-year-old male presents emergency department complaining of abdominal pain. Patient had increasing abdominal pain states he was seen here and did have an ultrasound was told that he may have pancreatitis he does admit that he drinks at least 20 beers a day. Patient states pain is getting worse he states he started to have withdrawal symptoms. Shaky, nauseated. Patient states pain is increasing does have some shoulder pain no chest pain. Denies fevers or chills. - Related Data Home Medications Medication Instructions Recorded Confirmed Hydrocodone/Acetaminophen 1 tab PO QID 06/25/14 02/27/23 [Hydrocodone/Acetaminophen 10-325] Clobetasol Propionate [Temovate 1 applic TOPICAL BID PRN 02/27/23 02/27/23 0.05% Oint] amLODIPine [Norvasc] 5 mg PO BID 02/27/23 02/27/23 methylPREDNISolone [Medrol Dose See Taper PO DIRECTED 02/27/23 02/27/23 Pack] Previous Rx's Medication Instructions Recorded Ondansetron Odt [Zofran Odt] 4 mg PO Q8HR PRN #20 tab 02/13/24 Ondansetron Odt [Zofran Odt] 4 mg PO Q8HR PRN #10 tab 02/14/24 chlordiazePOXIDE HCl [Librium] 25 mg PO QID #20 capsule 02/14/24 Allergies Allergy/AdvReac Type Severity Reaction Status Date / Time No Known Allergies Allergy Verified 02/14/24 12:32 Review of Systems ROS Statement: Those systems with pertinent positive or pertinent negative responses have been documented in the HPI. ROS Other: All systems not noted in ROS Statement are negative. Past Medical History Past Medical History: GERD/Reflux Additional Past Medical History / Comment(s): elevated liver enzymes, hiatal hernia & umbical hernia, blood in stools recently, Gout History of Any Multi-Drug Resistant Organisms: C-DIFF Date of last positivie culture/infection: 2004 MDRO Source:: stool Past Surgical History: Orthopedic Surgery Additional Past Surgical History / Comment(s): repair of medial nerve left arm, colonoscopies Past Anesthesia/Blood Transfusion Reactions: No Reported Reaction Past Psychological History: PTSD Smoking Status: Current every day smoker Past Alcohol Use History: Abuse, Daily Past Drug Use History: None Reported - Past Family History Mother Family Medical History: No Reported History General Exam Limitations: no limitations General appearance: alert, in no apparent distress Head exam: Present: atraumatic, normocephalic, normal inspection Eye exam: Present: normal appearance, PERRL, EOMI. Absent: scleral icterus, conjunctival injection, periorbital swelling ENT exam: Present: normal exam, mucous membranes moist Neck exam: Present: normal inspection, full ROM. Absent: tenderness, m eningismus, lymphadenopathy Respiratory exam: Present: normal lung sounds bilaterally. Absent: respiratory distress, wheezes, rales, rhonchi, stridor Cardiovascular Exam: Present: regular rate, normal rhythm, normal heart sounds. Absent: systolic murmur, diastolic murmur, rubs, gallop, clicks GI/Abdominal exam: Present: soft, tenderness, normal bowel sounds. Absent: distended, guarding, rebound, rigid Course Vital Signs 02/14/24 02/14/24 12:29 14:32 Temperature 98 F 98.2 F Pulse Rate 65 82 Respiratory 18 17 Rate Blood Pressure 171/96 165/90 O2 Sat by Pulse 98 98 Oximetry Medical Decision Making - Medical Decision Making Was pt. sent in by a medical professional or institution (, PA, ANALYTICAL LAB TECHNICIAN, urgent care, hospital, or jail...) When possible be specific @ -No Did you speak to anyone other than the patient for history (EMS, parent, family, police, friend...)? What history was obtained from this source @ -No Did you review nursing and triage notes (agree or disagree)? Why? @ -I reviewed and agree with nursing and triage notes Were old charts reviewed (outside hosp., previous admission, EMS record, old EKG, old radiological studies, urgent care reports/EKG's, jail records)? Report findings @ -Reviewed records from yesterday labs, ultrasound Differential Diagnosis (chest pain, altered mental status, abdominal pain women, abdominal pain men, vaginal bleeding, weakness, fever, dyspnea, syncope, headache, dizziness, GI bleed, back pain, seizure, CVA, palpatations, mental health, musculoskeletal)? @Differential Abdominal Pain Men: Appendicitis, cholecystitis, diverticulosis, ischemic bowel, pancreatitis, hepatitis, UTI, gastroenteritis, AAA, incarcerated hernia, bowel obstruction, constipation, inflammatory bowel, hepatitis, peptic ulcer disease, splenic infarction, perforated viscus, testicular torsion, this is not meant to be an all-inclusive list EKG interpreted by me (3pts min.). @ -[None X-rays interpreted by me (1pt min.). @ -None done CT interpreted by me (1pt min.). @ -CT pelvis showing fatty liver disease enlarged liver U/S interpreted by me (1pt. min.). @ -None done What testing was considered but not performed or refused? (CT, X-rays, U/S, lab s)? Why? @ -None What meds were considered but not given or refused? Why? @ -None Did you discuss the management of the patient with other professionals (professionals i.e. , PA, ANALYTICAL LAB TECHNICIAN, lab, RT, psych nurse, social contact worker, prospecting driller, teacher, investigation officer, classification case manager)? Give summary @ -No Was smoking cessation discussed for >3mins.? @ -No Was critical care preformed (if so, how long)? @ -No Were there social determinants of health that impacted care today? How? (Homelessness, low income, unemployed, alcoholism, drug addiction, transportation, low edu. Level, literacy, decrease access to med. care, skilled nursing, rehab)? @ -No Was there de-escalation of care discussed even if they declined (Discuss DNR or withdrawal of care, Hospice)? DNR status @ -No What co-morbidities impacted this encounter? (DM, HTN, Smoking, COPD, CAD, Cancer, CVA, ARF, Chemo, Hep., AIDS, mental health diagnosis, sleep apnea, morbid obesity)? @ -Alcohol use Was patient admitted / discharged? Hospital course, mention meds given and route, prescriptions, significant lab abnormalities, going to OR and other pertinent info. @ -[Discharge patient's lipase is improved patient does have transaminitis related to his alcohol abuse alcohol is negative. Patient patient feels greatly improved this time patient refrain from alcohol will be given medication for withdrawal and antiemetics. Undiagnosed new problem with uncertain prognosis? @ -No Drug Therapy requiring intensive monitoring for toxicity (Heparin, Nitro, Insulin, Cardizem)? @ -No Were any procedures done? @ -No Diagnosis/symptom? @ -[Abdominal pain, alcohol abuse Acute, or Chronic, or Acute on Chronic? @ -Acute Uncomplicated (without systemic symptoms) or Complicated (systemic symptoms)? @ -Uncomplicated Side effects of treatment? @ -No Exacerbation, Progression, or Severe Exacerbation? @ -No Poses a threat to life or bodily function? How? (Chest pain, [place], [place], pneumonia, PE, COPD, DKA, ARF, appy, cholecystitis, CVA, Diverticulitis, Homicidal, Suicidal, threat to staff... and all critical care pts) @ -No - Lab Data Result diagrams: 02/14/24 12:54 02/14/24 12:54 Lab Results 02/14/24 02/14/24 02/14/24 Range/Units 12:54 12:54 12:54 WBC 3.3 L (3.8-10.6) k/uL RBC 4.12 L (4.30-5.90) m/uL Hgb 14.7 (13.0-17.5) gm/dL Hct 43.0 (39.0-53.0) % MCV 104.4 H (80.0-100.0) fL MCH 35.6 H (25.0-35.0) pg MCHC 34.1 (31.0-37.0) g/dL RDW 11.4 L (11.5-15.5) % Plt Count 100 L (150-450) k/uL MPV 10.1 Neutrophils % 71 % Lymphocytes % 16 % Monocytes % 8 % Eosinophils % 1 % Basophils % 1 % Neutrophils # 2.3 (1.3-7.7) k/uL Lymphocytes # 0.5 L (1.0-4.8) k/uL Monocytes # 0.3 (0-1.0) k/uL Eosinophils # 0.0 (0-0.7) k/uL Basophils # 0.0 (0-0.2) k/uL Macrocytosis Slight Sodium 135 L (137-145) mmol/L Potassium 3.9 (3.5-5.1) mmol/L Chloride 103 (98-107) mmol/L Carbon Dioxide 22 (22-30) mmol/L Anion Gap 10 mmol/L BUN 3 L (9-20) mg/dL Creatinine 0.53 L (0.66-1.25) mg/dL Est GFR (CKD-EPI)AfAm >90 (>60 ml/min/1.73 sqM) Est GFR (CKD-EPI)NonAf >90 (>60 ml/min/1.73 sqM) Glucose 107 H (74-99) mg/dL Plasma Lactic Acid Lucio 1.2 (0.7-2.0) mmol/L Calcium 9.6 (8.4-10.2) mg/dL Magnesium 1.7 (1.6-2.3) mg/dL Total Bilirubin 2.6 H (0.2-1.3) mg/dL AST 154 H (17-59) U/L ALT 88 H (4-49) U/L Alkaline Phosphatase 149 H (38-126) U/L Total Protein 8.1 (6.3-8.2) g/dL Albumin 4.8 (3.5-5.0) g/dL Lipase 218 (23-300) U/L Serum Alcohol <10 mg/dL Disposition Clinical Impression: Abdominal pain, Alcoholic hepatitis, Alcohol abuse with withdrawal Disposition: HOME SELF-CARE Condition: Stable Instructions (If sedation given, give patient instructions): Abdominal Pain (ED) Additional Instructions: Please return to the Emergency Department if symptoms worsen or any other concerns. Prescriptions: chlordiazePOXIDE HCl [Librium] 25 mg PO QID #20 capsule Ondansetron Odt [Zofran Odt] 4 mg PO Q8HR PRN #10 tab PRN Reason: Nausea Is patient prescribed a controlled substance at d/c from ED?: Yes When asked, does pt state using other controlled substances?: No If prescribed controlled substance>3 days was MAPS reviewed?: Prescribed <3 Days Referrals: Liam Miramontes DO [Primary Care Provider] - 1-2 days Time of Disposition: 15:21
--- NOTE | 2024-02-14 15:09 | CT ---
EXAMINATION TYPE: CT abdomen pelvis w con DATE OF EXAM: 02/14/2024 COMPARISON: None HISTORY: Abdominal pain, pt was here yesterday and told it was pancreatitis CT DLP: 745.7 mGycm Automated exposure control for dose reduction was used. TECHNIQUE: Helical acquisition of images was performed from the lung bases through the pelvis. CONTRAST: Performed without Oral Contrast and with IV Contrast, patient injected with 100 mL of Isovue 300. FINDINGS: The lung bases are clear. The gallbladder is normal without distention, wall thickening, pericholecystic fluid or gallstones. T here is no biliary ductal dilatation. There is no focal mass or organomegaly involving the liver, pancreas, spleen or adrenal glands. There is marked fatty infiltration of the liver. There is no solid renal mass or hydronephrosis and there is homogeneous contrast enhancement of the r enal parenchyma. The caliber the abdominal aorta is normal is no retroperitoneal adenopathy or hemorr giuliana. The bowel loops are normal in caliber and there is no evidence of dilatation or obstruction. No infla mmatory changes are identified in the bowel wall or mesentery. There is no free intraperitoneal air or fluid. No pelvic mass, free fluid, abscess or adenopathy. There is a small periumbilical hernia containing fat. IMPRESSION: 1. Marked fatty infiltration liver. 2. small periumbilical hernia containing fat.
[2024-02-14] MEDS: ACET/COD 300 MG/30 MG STARTER PACK 6 TAB BTL PO STA (15:32)
[2024-02-14 15:56] VITALS: BP 147/90; PULSE 60; RESP 16; TEMP 97.4
== END 2024-02-14 15:38 | disposition home or self-care (01) ==
LOC: EC 12:17
DX: K70.10 Alcoholic hepatitis without ascites (principal); F10.139 Alcohol abuse with withdrawal, unspecified; F17.200 Nicotine dependence, unspecified, uncomplicated; Y90.0 Blood alcohol level of less than 20 mg/100 ml
CPT/HCPCS: 36415; 80053; 83605; 83690; 83735; 85025; 80320; 74177; 99285; 96374; 96375 ×3; 96361 ×2; J2060; J2405; J1885; J1170; Q9967

== ENCOUNTER 2024-03-16 13:59 | Emergency (ER) | payer OTHER, MEDICARE ==
--- NOTE | 2024-03-16 15:28 | ED ---
General Adult HPI - General Chief complaint: Recheck/Abnormal Lab/Rx Stated complaint: Both Leg Numbness Time Seen by Provider: 03/16/24 14:29 Source: patient, RN notes reviewed Mode of arrival: ambulatory Limitations: no limitations - History of Present Illness Initial comments: 43-year-old male presents to the emergency department for evaluation of bi lateral foot burning and tingling. He states that the symptoms have been going on for around 6 months but has been worse in the past 48 hours. He notes that his similar character to when he has been experiencing. He does report that he is seeing neurology for this. He does have an appointment with neurology tomorrow. He takes vicodin at home. Denies fever, chills. - Related Data Home Medications Medication Instructions Recorded Confirmed Hydrocodone/Acetaminophen 1 tab PO QID 06/25/14 02/27/23 [Hydrocodone/Acetaminophen 10-325] Clobetasol Propionate [Temovate 1 applic TOPICAL BID PRN 02/27/23 02/27/23 0.05% Oint] amLODIPine [Norvasc] 5 mg PO BID 02/27/23 02/27/23 methylPREDNISolone [Medrol Dose See Taper PO DIRECTED 02/27/23 02/27/23 Pack] Previous Rx's Medication Instructions Recorded Ondansetron Odt [Zofran Odt] 4 mg PO Q8HR PRN #20 tab 02/13/24 Ondansetron Odt [Zofran Odt] 4 mg PO Q8HR PRN #10 tab 02/14/24 chlordiazePOXIDE HCl [Librium] 25 mg PO QID #20 capsule 02/14/24 Vitamin B Complex 1 each PO DAILY #30 cap 03/16/24 Allergies Allergy/AdvReac Type Severity Reaction Status Date / Time No Known Allergies Allergy Verified 03/16/24 14:05 Review of Systems ROS Statement: Those systems with pertinent positive or pertinent negative responses have been documented in the HPI. ROS Other: All systems not noted in ROS Statement are negative. Past Medical History Past Medical History: GERD/Reflux Additional Past Medical History / Comment(s): elevated liver enzymes, hiatal hernia & umbical hernia, blood in stools recently, Gout History of Any Multi-Drug Resistant Organisms: C-DIFF Date of last positivie culture/infection: 2004 MDRO Source:: stool Past Surgical History: Orthopedic Surgery Additional Past Surgical History / Comment(s): repair of medial nerve left arm, colonoscopies Past Anesthesia/Blood Transfusion Reactions: No Reported Reaction Past Psychological History: PTSD Smoking Status: Current every day smoker Past Alcohol Use History: Abuse, Daily Past Drug Use History: None Reported - Past Family History Mother Family Medical History: No Reported History General Exam Limitations: no limitations General appearance: alert, in no apparent distress Head exam: Present: atraumatic, normocephalic, normal inspection Eye exam: Present: normal appearance, PERRL, EOMI. Absent: scleral icterus, conjunctival injection, periorbital swelling Respiratory exam: Present: normal lung sounds bilaterally. Absent: respiratory distress, wheezes, rales, rhonchi, stridor Cardiovascular Exam: Present: regular rate, normal rhythm, normal heart sounds. Absent: systolic murmur, diastolic murmur, rubs, gallop, clicks Extremities exam: Present: normal inspection, full ROM, normal capillary refill, other (DP and PT pulses 2+ ). Absent: tenderness, pedal edema, joint swelling, calf tenderness Neurological exam: Present: alert, oriented X3 Psychiatric exam: Present: normal affect, normal mood Skin exam: Present: warm, dry, intact, normal color. Absent: rash Course Vital Signs 03/16/24 03/16/24 14:00 15:38 Temperature 97.5 F L 98.1 F Pulse Rate 80 86 Respiratory 20 18 Rate Blood Pressure 162/100 176/86 O2 Sat by Pulse 100 99 Oximetry Medical Decision Making - Medical Decision Making Was pt. sent in by a medical professional or institution (, PA, PHARMACEUTICAL WORKER, urgent care, hospital, or prison...) When possible be specific @ -No Did you speak to anyone other than the patient for history (EMS, parent, family, police, friend...)? What history was obtained from this source @ -No Did you review nursing and triage notes (agree or disagree)? Why? @ -I reviewed and agree with nursing and triage notes Were old charts reviewed (outside hosp., previous admission, EMS record, old EKG, old radiological studies, urgent care reports/EKG's, prison records)? Report findings @ -No old charts were reviewed Differential Diagnosis (chest pain, altered mental status, abdominal pain women, abdominal pain men, vaginal bleeding, weakness, fever, dyspnea, syncope, headache, dizziness, GI bleed, back pain, seizure, CVA, palpatations, mental health, musculoskeletal)? @ -Differential Musculoskeletal Muscular strain, contusion, ligament sprain, fracture, arthritis, septic arthritis, bursitis, cellulitis, muscle spasm, nerve compression, DVT, arterial occlusion, herpes zoster, electrolyte abnormality, tumor.... This is not meant to be in all inclusive list EKG interpreted by me (3pts min.). @ -None X-rays interpreted by me (1pt min.). @ -None done CT interpreted by me (1pt min.). @ -None done U/S interpreted by me (1pt. min.). @ -None done What testing was considered but not performed or refused? (CT, X-rays, U/S, labs)? Why? @ -None What meds were considered but not given or refused? Why? @ -None Did you discuss the management of the patient with other professionals (professionals i.e. , PA, PHARMACEUTICAL WORKER, lab, RT, psych nurse, social worker clinical, phlebotomy tech, teacher, light armored vehicle officer, director of casework department)? Give summary @ -No Was smoking cessation discussed for >3mins.? @ -No Was critical care preformed (if so, how long)? @ -No Were there social determinants of health that impacted care today? How? (Homelessness, low income, unemployed, alcoholism, drug addiction, transportation, low edu. Level, literacy, decrease access to med. care, [facility], rehab)? @ -No Was there de-escalation of care discussed even if they declined (Discuss DNR or withdrawal of care, Hospice)? DNR status @ -No What co-morbidities impacted this encounter? (DM, HTN, Smoking, COPD, CAD, Cancer, CVA, ARF, Chemo, Hep., AIDS, mental health diagnosis, sleep apnea, morbid obesity)? @ -None Was patient admitted / discharged? Hospital course, mention meds given and route, prescriptions, significant lab abnormalities, going to OR and other pertinent info. @ -Discharged. Patient presented to the emergency department for evaluation of bilateral foot burning and tingling. Symptoms have been going on for 6 months. He denies any change in character of his symptoms. Patient requesting pain control. He has neurology appointment tomorrow. This seems to be a chronic issue. Patient provided pain control in ED. Prescription sent to patients pharmacy for B complex vitamin as patient has history of alcoholism. Patient understanding and agreeable with plan. Patient stable at time of discharge. Case discussed with Dr. Andrade Undiagnosed new problem with uncertain prognosis? @ -No Drug Therapy requiring intensive monitoring for toxicity (Heparin, Nitro, Insulin, Cardizem)? @ -No Were any procedures done? @ -No Diagnosis/symptom? @ -Bilateral lower extremity paresthesias Acute, or Chronic, or Acute on Chronic? @ -chronic Uncomplicated (without systemic symptoms) or Complicated (systemic symptoms)? @ -uncomplicated Side effects of treatment? @ -No Exacerbation, Progression, or Severe Exacerbation? @ -No Poses a threat to life or bodily function? How? (Chest pain, [place], [place], pneumonia, PE, COPD, DKA, ARF, appy, cholecystitis, CVA, Diverticulitis, Homicidal, Suicidal, threat to staff... and all critical care pts) @ -No Disposition Clinical Impression: Peripheral neuropathy Disposition: HOME SELF-CARE Condition: Stable Instructions (If sedation given, give patient instructions): Paresthesia (ED) Additional Instructions: Please follow up with your neurologist tomorrow as scheduled. Return to the emergency department for new or worsening symptoms. Prescriptions: Vitamin B Complex 1 each PO DAILY #30 cap Is patient prescribed a controlled substance at d/c from ED?: No Referrals: Liam Miramontes DO [Primary Care Provider] - 1-2 days
[2024-03-16] MEDS: HYDROmorphone 1 MG/ML 1 ML SYRINGE IM STA (15:30)
[2024-03-16] MEDS: LIDOCAINE 4% PATCH TOPICAL ONE (15:31)
[2024-03-16 15:40] VITALS: BP 176/86; PULSE 86; RESP 18; TEMP 98.1
== END 2024-03-16 15:46 | disposition home or self-care (01) ==
LOC: EC 13:59
DX: G62.9 Polyneuropathy, unspecified (principal); F17.200 Nicotine dependence, unspecified, uncomplicated
CPT/HCPCS: 99284; 96372; J1170

== ENCOUNTER 2024-04-06 00:49 | Emergency (ER) | payer OTHER, MEDICARE ==
[2024-04-06] MEDS: DIPH,PERTUS(ACELL)TETVAC-LF 0.5 ML VIAL IM ONE (01:26)
[2024-04-06] MEDS: LIDOCAINE 1% INJ 10MG/ML (20 ML MDV) SQ ONE (01:28)
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
[2024-04-06 04:23] VITALS: PULSE 90
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
[2024-04-06 05:34] VITALS: BP 96/53; RESP 20; TEMP 98.1
== END 2024-04-06 05:32 | disposition home or self-care (01) ==
LOC: EC 00:49
DX: S01.81XA Laceration without foreign body of other part of head, initial encounter (principal); F17.200 Nicotine dependence, unspecified, uncomplicated; Z23 Encounter for immunization; Y04.8XXA Assault by other bodily force, initial encounter
CPT/HCPCS: 72125; 70450; 90715; 12013; 99283; 90471; J2001

== ENCOUNTER 2024-04-07 16:03 | Emergency (ER) | payer OTHER, MEDICARE ==
[2024-04-07 16:10] VITALS: BP 159/94; PULSE 72; RESP 18; TEMP 97.4
--- NOTE | 2024-04-07 16:42 | ED ---
Extremity Problem HPI - General Chief complaint: Extremity Injury, Lower Stated complaint: Body Pain Time Seen by Provider: 04/07/24 16:25 Source: patient Mode of arrival: ambulatory Limitations: no limitations - Related Data Home Medications Medication Instructions Recorded Confirmed Hydrocodone/Acetaminophen 1 tab PO QID 06/25/14 02/27/23 [Hydrocodone/Acetaminophen 10-325] Clobetasol Propionate [Temovate 1 applic TOPICAL BID PRN 02/27/23 02/27/23 0.05% Oint] amLODIPine [Norvasc] 5 mg PO BID 02/27/23 02/27/23 methylPREDNISolone [Medrol Dose See Taper PO DIRECTED 02/27/23 02/27/23 Pack] Previous Rx's Medication Instructions Recorded Ondansetron Odt [Zofran Odt] 4 mg PO Q8HR PRN #20 tab 02/13/24 Ondansetron Odt [Zofran Odt] 4 mg PO Q8HR PRN #10 tab 02/14/24 chlordiazePOXIDE HCl [Librium] 25 mg PO QID #20 capsule 02/14/24 Vitamin B Complex 1 each PO DAILY #30 cap 03/16/24 Allergies Allergy/AdvReac Type Severity Reaction Status Date / Time No Known Allergies Allergy Verified 04/07/24 16:09 Review of Systems ROS Statement: Those systems with pertinent positive or pertinent negative responses have been documented in the HPI. ROS Other: All systems not noted in ROS Statement are negative. Past Medical History Past Medical History: GERD/Reflux Additional Past Medical History / Comment(s): elevated liver enzymes, hiatal hernia & umbical hernia, blood in stools recently, Gout History of Any Multi-Drug Resistant Organisms: C-DIFF Date of last positivie culture/infection: 2004 MDRO Source:: stool Past Surgical History: Orthopedic Surgery Additional Past Surgical History / Comment(s): repair of medial nerve left arm, colonoscopies Past Anesthesia/Blood Transfusion Reactions: No Reported Reaction Past Psychological History: PTSD Smoking Status: Current every day smoker Past Alcohol Use History: Abuse, Daily Past Drug Use History: None Reported - Past Family History Mother Family Medical History: No Reported History General Exam Limitations: no limitations Course Vital Signs 04/07/24 16:07 Temperature 97.4 F L Pulse Rate 72 Respiratory 18 Rate Blood Pressure 159/94 O2 Sat by Pulse 100 Oximetry Disposition Referrals: Liam Miramontes DO [Primary Care Provider] - 1-2 days
== END 2024-04-07 17:12 | disposition left against medical advice (07) ==
LOC: EC 16:03
DX: Z53.29 Procedure and treatment not carried out because of patient's decision for other reasons (principal)
CPT/HCPCS: 99499

== ENCOUNTER 2024-07-25 06:15 | Emergency (ER) | payer OTHER, MEDICARE ==
[2024-07-25 06:28] VITALS: RESP 18
--- NOTE | 2024-07-25 06:50 | ED ---
Chest Pain HPI - General Chief Complaint: Chest Pain Stated Complaint: CP/Vomitting Time Seen by Provider: 07/25/24 06:46 Source: patient, RN notes reviewed Mode of arrival: ambulatory Limitations: no limitations - History of Present Illness Initial Comments: 44-year-old male presenting to the ER with a chief complaint of left-sided chest/abdomen discomfort. Patient states around noon yesterday he started to experience heartburn for which she took omeprazole without improvement. He states throughout the night the pain increased in intensity and started radiating to his left axilla. He reports multiple bouts of emesis with chills. Patient states he took prescribed Vicodin without relief of pain. He denies any shortness of breath, dizziness, lightheadedness during this episode. States this morning he woke up and the pain seemed to be better but worsened throughout the morning presenting him to the ER. Patient does report a history of pa ncreatitis and states pain feels similar. Patient reports he has been drinking more than normal. He states he is to 7 beers yesterday. Denies any fevers, cough, congestion, change in bowel habits, urinary complaints. - Related Data Home Medications Medication Instructions Recorded Confirmed amLODIPine [Norvasc] 5 mg PO BID 02/27/23 07/25/24 HYDROcodone/APAP 10-325MG [[place] 1 tab PO BID PRN 07/25/24 07/25/24 10-325] Omeprazole [PriLOSEC] 20 mg PO BID PRN 07/25/24 07/25/24 Venlafaxine HCl ER [Effexor Xr] 75 mg PO DAILY 07/25/24 07/25/24 Allergies Allergy/AdvReac Type Severity Reaction Status Date / Time No Known Allergies Allergy Verified 07/25/24 11:30 Review of Systems ROS Statement: Those systems with pertinent positive or pertinent negative responses have been documented in the HPI. ROS Other: All systems not noted in ROS Statement are negative. EKG Findings - EKG Comments: EKG Findings:: EKG taken at 6: 44 showing sinus bradycardia. No ST segment or T wave abnormalities. Ventricular rate 59, UT interval 137, QRS duration 106, QT/QTc 429/427. Past Medical History Past Medical History: GERD/Reflux Additional Past Medical History / Comment(s): elevated liver enzymes, hiatal hernia & umbical hernia, blood in stools recently, Gout History of Any Multi-Drug Resistant Organisms: C-DIFF Date of last positivie culture/infection: 2004 MDRO Source:: stool Past Surgical History: Orthopedic Surgery Additional Past Surgical History / Comment(s): repair of medial nerve left arm, colonoscopies Past Anesthesia/Blood Transfusion Reactions: No Reported Reaction Past Psychological History: PTSD Smoking Status: Current every day smoker Past Alcohol Use History: Abuse, Daily Past Drug Use History: Marijuana - Past Family History Mother Family Medical History: No Reported History General Exam General appearance: alert, in no apparent distress Respiratory exam: Present: normal lung sounds bilaterally. Absent: respiratory distress, wheezes, rales, rhonchi, stridor Cardiovascular Exam: Present: regular rate, normal rhythm, normal heart sounds. Absent: systolic murmur, diastolic murmur, rubs, gallop, clicks GI/Abdominal exam: Present: soft, tenderness (epigastric), normal bowel sounds Neurological exam: Present: alert, oriented X3, CN II-XII intact Skin exam: Present: warm, dry, intact, normal color. Absent: rash Course Vital Signs 07/25/24 07/25/24 07/25/24 06:23 07:55 10:00 Temperature 97.6 F Pulse Rate 79 60 Pulse Rate [ 59 L Principal Strategist ] Respiratory 18 18 Rate Blood Pressure 129/91 149/105 O2 Sat by Pulse 100 100 Oximetry 07/25/24 11:32 Temperature 97.7 F Pulse Rate 66 Pulse Rate [ Principal Strategist ] Respiratory 18 Rate Blood Pressure 138/98 O2 Sat by Pulse 98 Oximetry - Reevaluation(s) Reevaluation #1: 07/25/24 08:01 Patient reevaluated. No signs of acute distress. Patient reporting improvement of pain. Updated on results. Ultrasound ordered. 07/25/24 09:52 Case discussed with on-call general surgery, , who advised on transfer for GI services 07/25/24 10:[address] [facility], who accepts transfer. Chest Pain MDM - MDM Was pt. sent in by a medical professional or institution (, PA, PROCESS SAFETY MANAGER, urgent care, hospital, or correction...) When possible be specific @ -No Did you speak to anyone other than the patient for history (EMS, parent, family, police, friend...)? What history was obtained from this source @ -No Did you review nursing and triage notes (agree or disagree)? Why? @ -I reviewed and agree with nursing and triage notes Were old charts reviewed (outside hosp., previous admission, EMS record, old EKG, old radiological studies, urgent care reports/EKG's, correction records)? Report findings @ -No old charts were reviewed Differential Diagnosis (chest pain, altered mental status, abdominal pain women, abdominal pain men, vaginal bleeding, weakness, fever, dyspnea, syncope, headache, dizziness, GI bleed, back pain, seizure, CVA, palpatations, mental health, musculoskeletal)? @ -Differential Abdominal Pain Men:Appendicitis, cholecystitis, diverticulosis, ischemic bowel, pancreatitis, hepatitis, UTI, gastroenteritis, AAA, incarcerated hernia, bowel obstruction, constipation, inflammatory bowel, hepatitis, peptic ulcer disease, splenic infarction, perforated viscus, testicular torsion, this is not meant to be an all-inclusive list EKG interpreted by me (3pts min.). @ -As above X-rays interpreted by me (1pt min.). @ -CXR negative for acute cardiopulmonary process CT interpreted by me (1pt min.). @ -None done U/S interpreted by me (1pt. min.). @ -Gallbladder ultrasound showing a dilated gallbladder. No definitive gallstones. Dilated common bile duct measuring 0.7 cm. Hepatomegaly. What testing was considered but not performed or refused? (CT, X-rays, U/S, labs)? Why? @ -None What meds were considered but not given or refused? Why? @ -None Did you discuss the management of the patient with other professionals (professionals i.e. , PA, PROCESS SAFETY MANAGER, lab, RT, psych nurse, social media senior associate, occupational therapy aide, teacher, examining officer, mental health case manager)? Give summary @ -Case discussed with Dr. Rowley who advised on transfer. Case discussed with Dr. Margarito Heart who accepts. Was smoking cessation discussed for >3mins.? @ -No Was critical care preformed (if so, how long)? @ -No Were there social determinants of health that impacted care today? How? (Homelessness, low income, unemployed, alcoholism, drug addiction, transportation, low edu. Level, literacy, decrease access to med. care, retirement, rehab)? @ -Alcoholism Was there de-escalation of care discussed even if they declined (Discuss DNR or withdrawal of care, Hospice)? DNR status @ -No What co-morbidities impacted this encounter? (DM, HTN, Smoking, COPD, CAD, Cancer, CVA, ARF, Chemo, Hep., AIDS, mental health diagnosis, sleep apnea, morbid obesity)? @ -Alcoholism, pancreatitis, hypertension Was patient admitted / discharged? Hospital course, mention meds given and route, prescriptions, significant lab abnormalities, going to OR and other pertinent info. @ -Transferred. 44-year-old male presenting to the ER with a chief complaint of left-sided chest/abdominal pain. History and physical exam completed. Vitals within normal limits. Patient in no signs of acute distress. Focal epigastric abdominal tenderness with normal bowel sounds. No rebound or guarding. X-rays obtained showing a WBC 3.6 which is chronic in nature. Transaminitis with a total bilirubin of 2.0, AST 194, ALT 103, alk phos 134. Lipase 409. Troponin undetectable. Urinalysis unremarkable. Chest x-ray negative. Gallbladder ultrasound performed to rule out biliary obstruction due to transaminitis. Gallbladder ultrasound showing a dilated gallbladder with a common bile duct measuring 0.7 cm. No evidence of stones. Due to concern of possible biliary obstruction case was discussed with on-call general surgery, Dr. Rowley who advised on transfer for GI consultation. Case was then discussed with [facility], Dr. Pimentel accepted transfer. Patient received symptomatic treatment with IV fluids, Dilaudid and Zofran with improvement. Patient is agreeable for transfer. Patient refused EMS transportation and transfer to [facility] via private vehicle. Patient discharged from our facility in stable condition. Case discussed with ED attending, Dr. Coffey. Undiagnosed new problem with uncertain prognosis? @ -No Drug Therapy requiring intensive monitoring for toxicity (Heparin, Nitro, Insulin, Cardizem)? @ -No Were any procedures done? @ -No Diagnosis/symptom? @ -Dilated gallbladder and common bile duct rule out choledocholithiasis Acute, or Chronic, or Acute on Chronic? @ -Acute Uncomplicated (without systemic symptoms) or Complicated (systemic symptoms)? @ -Complicated Side effects of treatment? @ -No Exacerbation, Progression, or Severe Exacerbation? @ -No Poses a threat to life or bodily function? How? (Chest pain, [place], [place], pneumonia, PE, COPD, DKA, ARF, appy, cholecystitis, CVA, Diverticulitis, Homicidal, Suicidal, threat to staff... and all critical care pts) @ -Yes, as we cannot rule out choledocholithiasis. Choledocholithiasis can lead to cholangitis and sepsis which can lead to endorgan dysfunction. Disposition Clinical Impression: Dilated gallbladder, Common bile duct dilatation, Alcoholism Disposition: OTHER INSTITUTION NOT DEFINED Condition: Stable Referrals: None,Stated [REFERRING] - 1-2 days Time of Disposition: 10:36 - Out of Hospital Transfer - Req. Specs Out of Hospital Transfer - Requested Specifics: Other Emergency Center ([facility])
[2024-07-25] MEDS: SODIUM CHLORIDE 0.9% 1,000 ML IV STA (07:14)
[2024-07-25] MEDS: ONDANSETRON 4 MG/2 ML VIAL IVP STA (07:15)
[2024-07-25] MEDS: HYDROmorphone 1 MG/ML 1 ML SYRINGE IVP STA ×2 (07:16→10:02)
[2024-07-25 07:19] LABS: ALT 103 U/L (4-49); AST 194 U/L (17-59); African American GFR (CKD) >90 (>60 ml/min/1.73 sqM); Albumin 4.8 g/dL (3.5-5.0); Alkaline Phosphatase 135 U/L (38-126); Amylase 41 U/L (30-110); Anion Gap 12 mmol/L; Blood Urea Nitrogen <2 mg/dL (9-20); Calcium 9.8 mg/dL (8.4-10.2); Carbon Dioxide 23 mmol/L (22-30); Chloride 99 mmol/L (98-107); Glucose 90 mg/dL (74-99); Lipase 409 U/L (23-300); Non-African American GFR(CKD) >90 (>60 ml/min/1.73 sqM); Sodium 134 mmol/L (137-145); Total Protein 7.6 g/dL (6.3-8.2)
[2024-07-25 07:23] LABS: Basophils # (A) 0.1 k/uL (0-0.2); Basophils % (A) 2 %; Eosinophils # (A) 0.1 k/uL (0-0.7); Eosinophils % (A) 3 %; HCT 41.2 % (39.0-53.0); HGB 14.6 gm/dL (13.0-17.5); Lymphocytes % (A) 29 %; MCH 35.5 pg (25.0-35.0); MCHC 35.4 g/dL (31.0-37.0); MCV 100.2 fL (80.0-100.0); Mean Platelet Volume 9.7; Monocytes # (A) 0.5 k/uL (0-1.0); Monocytes % (A) 13 %; Neutrophils # (A) 1.8 k/uL (1.3-7.7); Neutrophils % (A) 52 %; RBC 4.11 m/uL (4.30-5.90); WBC 3.6 k/uL (3.8-10.6)
[2024-07-25 07:25] LABS: INR 1.1 (<1.2); Partial Thromboplastin Time 29.5 sec (22.0-30.0); Prothrombin Time 11.4 sec (10.0-12.5)
--- NOTE | 2024-07-25 07:31 | XR ---
EXAMINATION TYPE: XR chest 2V DATE OF EXAM: 07/25/2024 7:21 AM CLINICAL INDICATION: Male, 44 years old with history of left sided chest/abd pain; [facility] COMPARISON: Chest radiographs from 08/14/2022 TECHNIQUE: XR chest 2V Frontal view of the chest. FINDINGS: Lungs/Pleura: There is no evidence of pleural effusion, focal consolidation, or pneumothorax. Pulmonary vascularity: Unremarkable. Heart/mediastinum: Cardiomediastinal silhouette is unremarkable. Musculoskeletal: No acute osseous pathology. IMPRESSION: No acute cardiopulmonary disease/process. [facility], , 07/25/2024 7:29 AM
[2024-07-25 07:58] LABS: Platelet Count 91 k/uL (150-450)
--- NOTE | 2024-07-25 08:30 | US ---
EXAMINATION TYPE: US gallbladder DATE OF EXAM: 07/25/2024 COMPARISON: NONE CLINICAL INDICATION: Male, 44 years old with history of abd pain- pancreatitis; epigastric pain with vomiting TECHNIQUE: Grayscale and color Doppler imaging of the right upper quadrant was performed. FINDINGS: EXAM MEASUREMENTS: Liver Length: 20.0 cm Gallbladder Wall: 0.3 cm CBD: 0.7 cm Right Kidney: 10.9 x 5.3 x 5.3 cm Pancreas: not seen due to gas Liver: difficult to penetrate and enlarged, h/o fatty infiltrate Gallbladder: length 11.0cm, width 7.2cm, possible hydropic Evidence for sonographic Olmos's sign: no CBD: wnl Right Kidney: wnl IMPRESSION: 1. Hepatomegaly with findings suggestive of underlying hepatocellular disease or hepatic steatosis. 2. Dilated gallbladder. No definite gallstones however the common bile duct is dilated measuring 7 mm . Distal CBD abnormality in the differential diagnosis Correlate for biliary obstruction. [facility], , 07/25/2024 8:28 AM
[2024-07-25 09:43] LABS: Appearance,Urine Clear (Clear); Bilirubin,Urine Negative (Negative); Blood,Urine Negative (Negative); Color,Urine Colorless; Glucose,Urine (UA) Negative (Negative); Ketones,Urine Negative (Negative); Leukocyte Esterase,Urine Negative (Negative); Nitrite,Urine Negative (Negative); Protein,Urine Negative (Negative); Specific Gravity,Urine 1.006 (1.001-1.035)
[2024-07-25 11:34] VITALS: BP 138/98; PULSE 66; TEMP 97.7
== END 2024-07-25 11:34 | disposition other institution (70) ==
LOC: EC 06:15
CPT/HCPCS: 36415; 71046; 76705; 80053; 81003; 82150; 83605; 83690; 84484; 85025; 85610; 85730; 96361; 96374; 96375; 96376; 99285

== ENCOUNTER 2024-08-27 07:07 | Day surgery (SDC) | payer OTHER ==
[~2024-08-27 07:07] MED LIST changes: -LACTATED RINGERS 1,000 ML IV SCH; +LIDOCAINE 1% (10MG/ML) FOR IV START INTRADERMA PRN; +TETRACAINE 0.5% OPHTH (PF) DROPS 4 ML BTL OP PRN
[2024-08-27] MEDS: CYCLOPENTOLATE 1% OPHTH SOLN 2 ML BTL OP PRN (07:57)
[2024-08-27] MEDS: PHENYLEPHRINE 2.5% OPHTH DRP 2ML OP PRN (08:00)
[2024-08-27] MEDS: ONDANSETRON 4 MG/2 ML VIAL IVP STA (08:19)
[2024-08-27] MEDS: DEXAMETHASONE SOD PHOSPHATE 4 MG/ML 1 ML VIAL IVP STA (08:20)
[2024-08-27] MEDS: FAMOTIDINE 20 MG/2 ML VIAL IV STA (08:21)
[2024-08-27] MEDS: LACTATED RINGERS 1,000 ML IV SCH (08:22)
[2024-08-27] MEDS: IV FLUID CONTINUATION 1,000 ML IV ONE (08:25)
[2024-08-27] MEDS ORDERED: MIDAZOLAM 2 MG/2 ML VIAL ONE (08:26)
[2024-08-27] MEDS ORDERED: ePHEDrine 50 MG/ML 1 ML VIAL ONE (08:26)
[2024-08-27] MEDS ORDERED: PROPOFOL 10 MG/ML 20 ML VIAL IV ONE (08:26)
[2024-08-27] MEDS ORDERED: fentaNYL (PF) 50 MCG/ML 2 ML AMP ONE (08:26)
[2024-08-27] MEDS ORDERED: LIDOCAINE 1% INJ 10MG/ML (20 ML MDV) ONE (08:26)
[2024-08-27] MEDS: EPINEPHrine (PF) 0.3 ML in BALANCED SALT IRRIG SOLN COMB2 500 ML IRRIGATION ONE (08:43)
[2024-08-27] MEDS: HYALURONATE SODIUM INTRAOCULAR 1 EACH SYRINGE (12MG/ML) INTRAOCULA ONE (08:46)
[2024-08-27] MEDS: TIMOLOL 0.5% OPHTH DROPS 5 ML BTL OP PRN (08:47)
[2024-08-27] MEDS: MOXIFLOXACIN HCL 0.5% DROPS 3 ML BTL OP PRN (08:47)
[2024-08-27] MEDS: BALANCED SALT IRRIG SOLN COMB2 15 ML IRRIG.SOLN IRRIGATION ONE (08:47)
[2024-08-27] MEDS: LIDOCAINE 1% (PF) 10MG/ML VIAL SQ ONE (08:47)
--- NOTE | 2024-08-27 08:59 | P.OP ---
Date of Procedure: 08/27/24 Preoperative Diagnosis: posterior subcapsular cataract & nuclear sclerosis Postoperative Diagnosis: same Procedure(s) Performed: PIOL, OD Implants: [id number] 18.00 Anesthesia: GETA Surgeon: Arik Jean-Baptiste Pathology: none sent Condition: stable Disposition: same day Indications for Procedure: blurry vision Operative Findings: no complications
[2024-08-27 09:09] VITALS: TEMP 98
[2024-08-27 09:47] VITALS: RESP 16
[2024-08-27 10:11] VITALS: BP 121/78; PULSE 89
--- NOTE | 2024-08-27 19:27 | OP ---
OPERATIVE REPORT DATE OF SERVICE : 08/27/2024 PREOPERATIVE DIAGNOSIS: Nuclear sclerosis. POSTOPERATIVE DIAGNOSIS: Nuclear sclerosis. OPERATION: Phacoemulsification of cataract and intraocular lens implant of the right eye. ANESTHESIA: General. ESTIMATED BLOOD LOSS: Zero. SPECIMEN TAKEN: None. NARRATIVE: After obtaining the appropriate consent, the patient was brought to the operating room where the patient was placed under cardiac monitoring and prepped and draped in the usual sterile manner. At the 11 o'clock position, a 15-degree super sharp blade was used to create a paracentesis followed by instillation of 1% Xylocaine MPF 50:50 mix with BSS into the anterior chamber. This was followed by Amvisc viscoelastic to stabilize the anterior chamber. At the 9 o'clock position a self-sealing corneal flap incision was created using 2.8 mm tim keratome. A cystotome was used to initiate a continuous tear capsulorrhexis which was completed with the Utrata forceps. A Binkhorst cannula was used to hydrodissect the lens nucleus followed by hydrodelineation. Phacoemulsification of the lens was performed utilizing phacochop in 0.49 seconds at 5.1% power. The remaining cortical material was removed using the irrigation aspiration mode followed by additional 1% Xylocaine MPF into the anterior chamber followed by viscoelastic to stabilize the capsular bag. A Bausch [employer] Lomb MX60E 18.0 diopters posterior chamber lens was placed into the capsular bag without difficulty. The remaining viscoelastic material was removed from the anterior chamber with the irrigation/aspiration. Balanced salt solution was used to normalize the intraocular pressure. The incision was checked for watertight integrity. The patient then received 2 drops of 0.5% timolol followed by 2 drops Vigamox, was lightly patched and shielded in the usual manner. There were no complications from the procedure. The patient tolerated the procedure well and was returned to recovery in good condition. MMODL / IJN: [id number] /
== END 2024-08-27 10:27 | disposition home or self-care (01) ==
LOC: OR 07:07
PROVIDERS: ATTEND Ophthalmology
DX: H25.813 Combined forms of age-related cataract, bilateral (principal); H40.003 Preglaucoma, unspecified, bilateral; H52.13 Myopia, bilateral; M19.90 Unspecified osteoarthritis, unspecified site; F43.10 Post-traumatic stress disorder, unspecified; I10 Essential (primary) hypertension; G47.33 Obstructive sleep apnea (adult) (pediatric); K21.9 Gastro-esophageal reflux disease without esophagitis; F41.9 Anxiety disorder, unspecified; G62.9 Polyneuropathy, unspecified; F17.210 Nicotine dependence, cigarettes, uncomplicated; F12.90 Cannabis use, unspecified, uncomplicated; Z79.899 Other long term (current) drug therapy; Z87.19 Personal history of other diseases of the digestive system
CPT/HCPCS: 66984; C1780; J2250; J1100; J2405; J0171; J2003 ×2; J3010; J3490; J2704

== ENCOUNTER 2024-09-17 06:20 | Day surgery (SDC) | payer OTHER ==
[~2024-09-17 06:20] MED LIST changes: -LIDOCAINE 1% (10MG/ML) FOR IV START INTRADERMA PRN
[2024-09-17] MEDS: CYCLOPENTOLATE 1% OPHTH SOLN 2 ML BTL OP PRN (06:45)
[2024-09-17] MEDS: PHENYLEPHRINE 2.5% OPHTH DRP 2ML OP PRN (06:45)
[2024-09-17] MEDS: LACTATED RINGERS 1,000 ML IV SCH (07:00)
[2024-09-17] MEDS: IV FLUID CONTINUATION 1,000 ML IV ONE (07:00)
[2024-09-17] MEDS: DEXAMETHASONE SOD PHOSPHATE 4 MG/ML 1 ML VIAL IVP STA (07:22)
[2024-09-17] MEDS: ONDANSETRON 4 MG/2 ML VIAL IVP STA (07:23)
[2024-09-17] MEDS: MIDAZOLAM 2 MG/2 ML VIAL IV ONE (07:23)
[2024-09-17] MEDS ORDERED: LIDOCAINE 1% INJ 10MG/ML (20 ML MDV) ONE (07:24)
[2024-09-17] MEDS ORDERED: PROPOFOL 10 MG/ML 20 ML VIAL IV ONE (07:24)
[2024-09-17] MEDS ORDERED: fentaNYL (PF) 50 MCG/ML 2 ML AMP ONE (07:24)
[2024-09-17] MEDS: EPINEPHrine (PF) 0.3 ML in BALANCED SALT IRRIG SOLN COMB2 500 ML IRRIGATION ONE (07:45)
[2024-09-17] MEDS: BALANCED SALT IRRIG SOLN COMB2 15 ML IRRIG.SOLN INTRAOCULA ONE (07:49)
[2024-09-17] MEDS: HYALURONATE SODIUM INTRAOCULAR 1 EACH SYRINGE (12MG/ML) INTRAOCULA ONE (07:49)
[2024-09-17] MEDS: TIMOLOL 0.5% OPHTH DROPS 5 ML BTL OP PRN (07:50)
[2024-09-17] MEDS: MOXIFLOXACIN HCL 0.5% DROPS 3 ML BTL OP PRN (07:50)
[2024-09-17] MEDS: LIDOCAINE 1% (PF) 10MG/ML VIAL SQ ONE (07:50)
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
[2024-09-17 08:08] LABS: Prothrombin Time 11.2 sec (10.0-12.5)
[2024-09-17 08:10] LABS: ALT 33 U/L (4-49); AST 83 U/L (17-59); African American GFR (CKD) >90 (>60 ml/min/1.73 sqM); Alkaline Phosphatase 137 U/L (38-126); Anion Gap 11 mmol/L; Bilirubin, Delta 0.1 mg/dL (0.0-0.2); Bilirubin,Unconjugated 0.6 mg/dL (0.0-1.1); Blood Urea Nitrogen 7 mg/dL (9-20); Carbon Dioxide 27 mmol/L (22-30); Chloride 106 mmol/L (98-107); Non-African American GFR(CKD) >90 (>60 ml/min/1.73 sqM); Potassium 3.9 mmol/L (3.5-5.1); Sodium 144 mmol/L (137-145); Total Bilirubin 0.7 mg/dL (0.2-1.3)
[2024-09-17 08:18] VITALS: TEMP 97.5
[2024-09-17] MEDS: hydrALAZINE HCL 20 MG/ML 1 ML VIAL IVP PRN (08:33)
[2024-09-17 08:54] VITALS: RESP 16
[2024-09-17] MEDS: HYDROcodone/APAP 10-325MG 1 EACH TAB PO ONE (09:12)
[2024-09-17 09:49] VITALS: BP 140/83; PULSE 88
[2024-09-17 17:43] LABS: GGT 322 U/L (0-73)
--- NOTE | 2024-09-17 19:32 | OP ---
OPERATIVE REPORT DATE OF SERVICE : 09/17/2024 PREOPERATIVE DIAGNOSES: Nuclear sclerosis and posterior subcapsular cataract with ecchymosis of orbit. POSTOPERATIVE DIAGNOSES: Nuclear sclerosis and posterior subcapsular cataract with ecchymosis of orbit. OPERATION: Phacoemulsification of cataract and interocular lens implant, left eye. ESTIMATED BLOOD LOSS: Zero. SPECIMEN TAKEN: None. NARRATIVE: After obtaining the appropriate consent, the patient was brought to the operating room where the patient was placed under cardiac monitoring and prepped and draped in the usual sterile manner. At the 5 o'clock position, a 15-degree super sharp blade was used to create a paracentesis followed by instillation of 1% Xylocaine MPF 50:50 mix with BSS into the anterior chamber. This was followed by Amvisc viscoelastic to stabilize the anterior chamber. At the 3 o'clock position a self-sealing corneal flap incision was created using 2.8 mm tim keratome. A cystotome was used to initiate a continuous tear capsulorrhexis which was completed with the Utrata forceps. A Binkhorst cannula was used to hydrodissect the lens nucleus followed by hydrodelineation. Phacoemulsification of the lens was performed utilizing phacochop in 0 seconds at 0% power. The remaining cortical material was removed using the irrigation aspiration mode followed by additional 1% Xylocaine MPF into the anterior chamber followed by viscoelastic to stabilize the capsular bag. A Bausch and Lomb MX60E 18.5 diopters posterior chamber lens was placed into the capsular bag without difficulty. The remaining viscoelastic material was removed from the anterior chamber with the irrigation/aspiration. Balanced salt solution was used to normalize the intraocular pressure. The incision was checked for watertight integrity. The patient then received 2 drops of 0.5% timolol followed by 2 drops Vigamox, was lightly patched and shielded in the usual manner. There were no complications from the procedure. The patient tolerated the procedure well and was returned to recovery in good condition. MMODL / IJN: [id number] /
== END 2024-09-17 10:17 | disposition home or self-care (01) ==
LOC: OR 06:20
PROVIDERS: ATTEND Ophthalmology
DX: H25.812 Combined forms of age-related cataract, left eye (principal); H40.003 Preglaucoma, unspecified, bilateral; H52.13 Myopia, bilateral; I10 Essential (primary) hypertension; F41.9 Anxiety disorder, unspecified; G62.9 Polyneuropathy, unspecified; F43.10 Post-traumatic stress disorder, unspecified; K21.9 Gastro-esophageal reflux disease without esophagitis; M10.9 Gout, unspecified; M19.90 Unspecified osteoarthritis, unspecified site; Z98.41 Cataract extraction status, right eye; Z96.1 Presence of intraocular lens; Z87.19 Personal history of other diseases of the digestive system; Z79.899 Other long term (current) drug therapy
CPT/HCPCS: 80051; 82248; 82565; 82977; 84075; 84450; 84460; 84520; 85610; 66984; C1780; J2250; J0360; J1100; J2405; J0171; J2003 ×2; J3010; J2704

== ENCOUNTER 2024-10-21 08:51 | Emergency (ER) | payer OTHER, MEDICARE ==
[2024-10-21] MEDS: HYDROmorphone 1 MG/ML 1 ML SYRINGE IM STA (09:16)
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
--- NOTE | 2024-10-21 10:38 | CT ---
EXAMINATION TYPE: CT ChestAbdPelvis wo con DATE OF EXAM: 10/21/2024 10:13 AM COMPARISON: 02/14/2024 CLINICAL INDICATION: Male, 44 years old with history of fall, back pain, trauma, bruising above right iliac crest TECHNIQUE: Axial images at 5 mm thick sections. Reconstructed images in the coronal plane. Delayed images through the kidneys. Contrast used: mL of , (none if empty) Oral contrast used: without Oral Contrast (none if empty) CT DLP: 613.1 mGycm, Automated exposure control for dose reduction was used. FINDINGS: CT CHEST: Portion of the thyroid visualized is normal. No suspicious lung nodules or focal infiltrates are present. No pneumothorax is evident.1 No enlarged mediastinal or hilar adenopathy is evident. The ascending aorta diameter at the level of the main pulmonary artery is 3.3 cm. The main pulmonary artery diameter at the bifurcation is 2.[address] ABDOMEN: Periumbilical fat-containing hernia is present. No loops of bowel are involved. Liver: Moderate fatty infiltration cyst in the liver. No discrete masses Spleen: Normal Pancreas: Normal Adrenal glands: The adrenal glands are normal. Gallbladder: Normal Kidneys: No masses are evident. No hydronephrosis is present. No cysts are present. No renal stone s are evident Aorta: Vascular calcification is within the aorta. Inferior vena cava: Normal. CT PELVIS: Loops of bowel within the abdomen and pelvis are normal. This study is without oral contrast limi ting bowel evaluation. Appendix: Normal as visualized. Urinary bladder: Normal. Genitourinary structures: Prostate is prominent Osseous structures: No suspicious lytic or sclerotic lesions. No displaced rib fractures evident. Stephanie tebral body heights are preserved. Disc heights are unremarkable. No spinal canal stenosis identified . Subcutaneous tissues appear normal IMPRESSION: 1. No acute posttraumatic changes. 2. Moderate fatty infiltration of liver [facility], , 10/21/2024 10:36 AM
[2024-10-21 11:02] VITALS: BP 130/89; PULSE 82; RESP 16; TEMP 98
== END 2024-10-21 11:02 | disposition home or self-care (01) ==
LOC: EC 08:51
DX: M54.50 Low back pain, unspecified (principal); F17.200 Nicotine dependence, unspecified, uncomplicated; W01.0XXA Fall on same level from slipping, tripping and stumbling without subsequent striking against object, initial encounter
CPT/HCPCS: 99284; 96372; 71250; 74176; J1171

== ENCOUNTER 2024-12-26 10:37 | Observation (INO) | payer OTHER, MEDICARE ==
--- NOTE | 2024-12-26 10:55 | ED ---
Alcohol HPI - General Chief Complaint: Alcohol Stated Complaint: ETOH detox Time Seen by Provider: 12/26/24 10:54 Source: patient, RN notes reviewed Mode of arrival: ambulatory Limitations: no limitations - History of Present Illness Initial Comments: 44-year-old male presented the ER for evaluation of alcohol intoxication. Patient states he is seeking help in quitting drinking. He has been drinking consistently for the past 12 years. He states he is currently on a 40-day binge and typically consumes 24-30 beers a day with occasional shots of hard liquor. He states his last drink was while waiting to be called back from the waiting room. He states he went out to his car and drank a beer. 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 Also reports [facility] He does have a past medical history significant of hypertension for which he takes amlodipine and anxiety for which she takes venlafaxine. No other drug use. Patient denies any current headache, dizziness, lightheadedness, chest pain, shortness of breath, nausea, vomiting, abdominal pain, constipation/diarrhea, urinary complaints or peripheral edema. - Related Data Home Medications Medication Instructions Recorded Confirmed HYDROcodone/APAP 10-325MG [[place] 1 tab PO TID 07/25/24 12/26/24 10-325] Venlafaxine HCl ER [Effexor Xr] 225 mg PO DAILY 12/26/24 12/26/24 amLODIPine [Norvasc] 5 mg PO BID 12/26/24 12/26/24 Allergies Allergy/AdvReac Type Severity Reaction Status Date / Time No Known Allergies Allergy Verified 12/26/24 14:08 Review of Systems ROS Statement: Those systems with pertinent positive or pertinent negative responses have been documented in the HPI. ROS Other: All systems not noted in ROS Statement are negative. Past Medical History Past Medical History: GERD/Reflux, Hypertension, Osteoarthritis (OA), Skin Disorder Additional Past Medical History / Comment(s): elevated liver enzymes, hiatal hernia & umbical hernia, Gout, possible sleep apnea - has never been tested, psoriasis History of Any Multi-Drug Resistant Organisms: C-DIFF Date of last positivie culture/infection: 2004 MDRO Source:: stool Past Surgical History: Orthopedic Surgery Additional Past Surgical History / Comment(s): repair of medial nerve left arm, colonoscopies, EGD Past Anesthesia/Blood Transfusion Reactions: No Reported Reaction Past Psychological History: PTSD Smoking Status: Current every day smoker Past Alcohol Use History: Daily, Heavy Past Drug Use History: None Reported - Past Family History Mother Family Medical History: No Reported History General Exam - General Exam Comments Initial Comments: Visual Physical Exam Vital signs reviewed General: Well-appearing, nontoxic, no acute distress. Tearful Head: Normocephalic, atraumatic Eyes: PERRLA, EOMI ENT: Airway patent Chest: Nonlabored breathing Skin: No visual rash, normal skin tone Neuro: Alert and oriented 3 Musculoskeletal: No gross abnormalities Limitations: no limitations General appearance: alert, in no apparent distress, appears intoxicated Respiratory exam: Present: normal lung sounds bilaterally. Absent: respiratory distress, wheezes, rales, rhonchi, stridor Cardiovascular Exam: Present: regular rate, normal rhythm, normal heart sounds. Absent: systolic murmur, diastolic murmur, rubs, gallop, clicks GI/Abdominal exam: Present: soft, normal bowel sounds. Absent: distended, tenderness, guarding, rebound, rigid Neurological exam: Present: alert, oriented X3, CN II-XII intact Skin exam: Present: warm, dry, intact, normal color. Absent: rash Course Vital Signs 12/26/24 12/26/24 12/26/24 10:40 13:00 13:28 Temperature 97.4 F L 98.8 F Pulse Rate 93 95 91 Respiratory 18 18 18 Rate Blood Pressure 184/115 167/106 170/98 O2 Sat by Pulse 99 100 100 Oximetry 12/26/24 16:55 Temperature Pulse Rate 89 Respiratory 18 Rate Blood Pressure 130/80 O2 Sat by Pulse 95 Oximetry - Reevaluation(s) Reevaluation #1: 12/26/24 12:22 [facility]. Medical Decision Making - Medical Decision Making I performed the quick note portion of this chart. Electronically signed by Billy Martini PA-C Was pt. sent in by a medical professional or institution ([facility]o, DEVICE SALES CONSULTANT, urgent care, hospital, or half-way...) When possible be specific @ -No Did you speak to anyone other than the patient for history (EMS, parent, family, police, friend...)? What history was obtained from this source @ -No Did you review nursing and triage notes (agree or disagree)? Why? @ -I reviewed and agree with nursing and triage notes Were old charts reviewed (outside hosp., previous admission, EMS record, old EKG, old radiological studies, urgent care reports/EKG's, half-way records)? Report findings @ -No old charts were reviewed Differential Diagnosis (chest pain, altered mental status, abdominal pain women, abdominal pain men, vaginal bleeding, weakness, fever, dyspnea, syncope, headache, dizziness, GI bleed, back pain, seizure, CVA, palpatations, mental health, musculoskeletal)? @ -Seizure, alcohol intoxication, drug overdose... This list is not meant to be all-inclusive EKG interpreted by me (3pts min.). @ -As above X-rays interpreted by me (1pt min.). @ -None done CT interpreted by me (1pt min.). @ -None done U/S interpreted by me (1pt. min.). @ -None done What testing was considered but not performed or refused? (CT, X-rays, U/S, labs)? Why? @ -None What meds were considered but not given or refused? Why? @ -None Did you discuss the management of the patient with other professionals (professionals i.e. , PA, DEVICE SALES CONSULTANT, lab, RT, psych nurse, social services aide, blind escort, te acher, protective officer, watch caser)? Give summary @ -Yes, [facility] Was smoking cessation discussed for >3mins.? @ -No Was critical care preformed (if so, how long)? @ -No Were there social determinants of health that impacted care today? How? (Homelessness, low income, unemployed, alcoholism, drug addiction, transportation, low edu. Level, literacy, decrease access to med. care, usp, rehab)? @ -No Was there de-escalation of care discussed even if they declined (Discuss DNR or withdrawal of care, Hospice)? DNR status @ -No What co-morbidities impacted this encounter? (DM, HTN, Smoking, COPD, CAD, Cancer, CVA, ARF, Chemo, Hep., AIDS, mental health diagnosis, sleep apnea, morbid obesity)? @ -Alcoholism Was patient admitted / discharged? Hospital course, mention meds given and route, prescriptions, significant lab abnormalities, going to OR and other pertinent info. @ -Admitted. 44-year-old male presented the ER for alcohol intoxication. L aboratory studies showing a serum alcohol at 288 with associated transaminitis. Total bilirubin 1.3. UDS positive for opiates likely due to Vicodin. Patient given IV fluid bolus and started on Ativan protocol. CIWA protocol and seizure precautions in place. CIWA 6 on admission. Admission considered given patient's history of withdrawal seizures, this was [facility], Dr. Holliday. Patient is agreeable. Social work on consult. Patient admitted in stable condition. Case discussed with ED attending of Dr. Hebert. Undiagnosed new problem with uncertain prognosis? @ -No Drug Therapy requiring intensive monitoring for toxicity (Heparin, Nitro, Insulin, Cardizem)? @ -No Were any procedures done? @ -No Diagnosis/symptom? @ -Alcohol intoxication Acute, or Chronic, or Acute on Chronic? @ -Acute Uncomplicated (without systemic symptoms) or Complicated (systemic symptoms)? @ -Complicated Side effects of treatment? @ -No Exacerbation, Progression, or Severe Exacerbation? @ -No Poses a threat to life or bodily function? How? (Chest pain, [place], [place], pneumonia, PE, COPD, DKA, ARF, appy, cholecystitis, CVA, Diverticulitis, Homicidal, Suicidal, threat to staff... and all critical care pts) @ -Yes, alcohol intoxication can lead to withdrawal seizures - Lab Data Result diagrams: 12/26/24 11:16 12/26/24 11:16 Lab Results 12/26/24 12/26/24 12/26/24 Range/Units 11:16 11:16 11:20 WBC 4.4 (3.8-10.6) k/uL RBC 4.59 (4.30-5.90) m/uL Hgb 15.7 (13.0-17.5) gm/dL Hct 45.8 (39.0-53.0) % MCV 99.9 (80.0-100.0) fL MCH 34.3 (25.0-35.0) pg MCHC 34.4 (31.0-37.0) g/dL RDW 11.8 (11.5-15.5) % Plt Count 157 (150-450) k/uL MPV 8.0 Neutrophils % (Manual) 72 % Lymphocytes % (Manual) 22 % Monocytes % (Manual) 6 % Neutrophils # (Manual) 3.17 (1.3-7.7) k/uL Lymphocytes # (Manual) 0.97 L (1.0-4.8) k/uL Monocytes # (Manual) 0.26 (0-1.0) k/uL Nucleated RBCs 0 (0-0) /100 WBC Manual Slide Review Performed Sodium 140 (137-145) mmol/L Potassium 4.4 (3.5-5.1) mmol/L Chloride 100 (98-107) mmol/L Carbon Dioxide 25 (22-30) mmol/L Anion Gap 15 mmol/L BUN 6 L (9-20) mg/dL Creatinine 0.72 (0.66-1.25) mg/dL Est GFR (CKD-EPI)AfAm >90 (>60 ml/min/1.73 sqM) Est GFR (CKD-EPI)NonAf >90 (>60 ml/min/1.73 sqM) Glucose 103 H (74-99) mg/dL Calcium 9.8 (8.4-10.2) mg/dL Total Bilirubin 1.3 (0.2-1.3) mg/dL AST 232 H (17-59) U/L ALT 133 H (4-49) U/L Alkaline Phosphatase 112 (38-126) U/L Total Protein 9.0 H (6.3-8.2) g/dL Albumin 5.3 H (3.5-5.0) g/dL Amylase 44 (30-110) U/L Lipase 263 (23-300) U/L Urine Opiates Screen Detected H (NotDetected) Ur Oxycodone Screen Not Detected (NotDetected) Urine Methadone Screen Not Detected (NotDetected) Ur Barbiturates Screen Not Detected (NotDetected) U Tricyclic Antidepress Not Detected (NotDetected) Ur Phencyclidine Scrn Not Detected (NotDetected) Ur Amphetamines Screen Not Detected (NotDetected) U Methamphetamines Scrn Not Detected (NotDetected) U Benzodiazepines Scrn Not Detected (NotDetected) Urine Cocaine Screen Not Detected (NotDetected) U Marijuana (THC) Screen Not Detected (NotDetected) Serum Alcohol 288 H* mg/dL - EKG Data -: EKG Interpreted by Me EKG Comments: EKG taken at 12: 44 showing a sinus rhythm. No ST segment elevations or depressions. No T wave inversions. Ventricular rate 95, MD interval 170, QRS duration 98, QT/QTc 344/396. Disposition Clinical Impression: Alcoholic intoxication Disposition: ADMITTED IP TO THIS HOSP Condition: Stable Time of Disposition: 12:22
[2024-12-26 11:22] LABS: HCT 45.8 % (39.0-53.0); HGB 15.7 gm/dL (13.0-17.5); MCH 34.3 pg (25.0-35.0); MCHC 34.4 g/dL (31.0-37.0); MCV 99.9 fL (80.0-100.0); Platelet Count 157 k/uL (150-450); RBC 4.59 m/uL (4.30-5.90); RDW 11.8 % (11.5-15.5); WBC 4.4 k/uL (3.8-10.6)
[2024-12-26 11:46] LABS: ALT 133 U/L (4-49); AST 232 U/L (17-59); African American GFR (CKD) >90 (>60 ml/min/1.73 sqM); Albumin 5.3 g/dL (3.5-5.0); Alkaline Phosphatase 112 U/L (38-126); Amylase 44 U/L (30-110); Anion Gap 15 mmol/L; Blood Urea Nitrogen 6 mg/dL (9-20); Calcium 9.8 mg/dL (8.4-10.2); Carbon Dioxide 25 mmol/L (22-30); Chloride 100 mmol/L (98-107); Glucose 103 mg/dL (74-99); Lipase 263 U/L (23-300); Non-African American GFR(CKD) >90 (>60 ml/min/1.73 sqM); Sodium 140 mmol/L (137-145); Total Bilirubin 1.3 mg/dL (0.2-1.3)
[2024-12-26 11:47] LABS: Potassium 4.4 mmol/L (3.5-5.1)
[2024-12-26 11:49] LABS: Amphetamine Screen,Urine Not Detected (NotDetected); Benzodiazepines Screen,Urine Not Detected (NotDetected); Cocaine Screen,Urine Not Detected (NotDetected); Opiate Screen,Urine Detected (NotDetected); Phencyclidine Screen,Urine Not Detected (NotDetected); Urn Cannabinoid Scrn Not Detected (NotDetected)
[2024-12-26 11:50] LABS: Barbiturate Screen,Urine Not Detected (NotDetected); Methadone Screen, Urine Not Detected (NotDetected); Oxycodone Screen, Urine Not Detected (NotDetected); Tricyclic Antidepressant,Urine Not Detected (NotDetected)
[2024-12-26 11:52] LABS: Alcohol 288 mg/dL
[2024-12-26 12:03] LABS: Lymphocytes # (M) 0.97 k/uL (1.0-4.8); Monocytes # (M) 0.26 k/uL (0-1.0); Neutrophils # (M) 3.17 k/uL (1.3-7.7); Neutrophils % (M) 72 %; Nucleated Red Blood Cells 0 /100 WBC (0-0); Total Cells Counted 100
[2024-12-26] MEDS ORDERED: LORazepam 2 MG/ML INJ IV PRN ×2 (12:04)
[2024-12-26] MEDS ORDERED: NALOXONE 0.4 MG/ML 1 ML VIAL IV PRN (12:20)
[2024-12-26] MEDS ORDERED: ONDANSETRON 4 MG/2 ML VIAL IVP PRN (12:20)
[2024-12-26] MEDS ORDERED: IBUPROFEN 400 MG TAB PO PRN (12:20)
[2024-12-26] MEDS ORDERED: cloNIDine HCL 0.1 MG TAB PO PRN (13:26)
[2024-12-26] MEDS ORDERED: hydrALAZINE HCL 20 MG/ML 1 ML VIAL IVP PRN (13:33)
[2024-12-26] MEDS: SODIUM CHLORIDE 0.9% 1,000 ML IV ONE (13:41)
[2024-12-26] MEDS: THIAMINE 100 MG/ML 2 ML VIAL IM STA (13:41)
[2024-12-26] MEDS: HEPARIN SODIUM,PORCINE 5,000 UNIT/ML 1 ML VIAL SQ SCH (13:47)
[2024-12-26] MEDS: LORazepam 2 MG/ML INJ IV PRN (14:51)
[2024-12-26] MEDS: PANTOPRAZOLE 40 MG/10 ML VIAL IVP SCH (14:53)
--- NOTE | 2024-12-26 15:28 | XR ---
EXAMINATION TYPE: XR chest 1V portable DATE OF EXAM: 12/26/2024 3:24 PM COMPARISON: 07/25/2024 CLINICAL INDICATION: Male, 44 years old with history of chf, Chest pain TECHNIQUE: Single frontal view of the chest is obtained. FINDINGS: There is no focal air space opacity, pleural effusion, or pneumothorax seen. The cardiac silhouette size is within normal limits. The osseous structures are intact. IMPRESSION: 1. No acute process. [facility], , 12/26/2024 3:26 PM
[2024-12-26] MEDS: cloNIDine HCL 0.1 MG TAB PO SCH (16:58)
[2024-12-26] MEDS ORDERED: LORazepam 1 MG/0.5 ML VIAL IV PRN (18:08)
[2024-12-26 18:37] VITALS: RESP 16
[2024-12-26] MEDS: LORazepam 1 MG/0.5 ML VIAL IV PRN ×2 (18:37→21:03)
--- NOTE | 2024-12-26 20:33 | HP ---
HISTORY AND PHYSICAL CHIEF COMPLAINT: Alcohol intoxication. HISTORY OF PRESENT ILLNESS: This is a 44-year-old gentleman with a past medical history of previous alcoholism and alcohol withdrawal seizures and delirium tremens, was admitted with alcohol intoxication. The patient is anxious. The patient consumes 24 to 30 beers a day with occasional shots of hard liquor. There is no history of any fever, rigors, or chills at this time. PAST MEDICAL HISTORY: History of EtOH, hypertension. Rest of the history and rest of the chart are also reviewed. HOME MEDICATIONS: Reviewed include Norvasc. Doses and rest of medications reviewed. ALLERGIES: None. FAMILY HISTORY: No history of heart disease or strokes in the family. SOCIAL HISTORY: As mentioned alcohol, smoking. REVIEW OF SYSTEMS: Fourteen-point review of systems is negative except as mentioned earlier. PHYSICAL EXAMINATION: VITAL SIGNS: Pulse is 93, blood pressure 194/115, respirations 18. CHEST: A few scattered rhonchi and crackles. ABDOMEN: Soft, nontender. NERVOUS SYSTEM: Tremors present. LABORATORY DATA: Noted. Alcohol 288. ASSESSMENT: 1. Acute alcohol intoxication and acute early delirium tremens. 2. Hypertension. 3. Acute alcoholic hepatitis. 4. History of previous alcohol withdrawal seizures. RECOMMENDATIONS: Recommend to continue current management and continue symptomatic treatment. WA protocol, Haldol p.r.n. Otherwise, I would also recommend to initiate clonidine. Monitor closely. Recommend alcohol rehab. Prognosis guarded. Further recommendations to follow. See orders for further details. MMODL / IJN: [id number] /
[2024-12-27 08:12] VITALS: BP 158/97; PULSE 62; TEMP 97.8
[2024-12-27] MEDS: HYDROcodone/APAP 5-325MG 1 EACH TAB PO PRN (08:28)
[2024-12-27 09:56] LABS: Basophils # (A) 0.05 X 10*3/uL (0.00-0.10); Basophils % (A) 1.6 %; Eosinophils # (A) 0.08 X 10*3/uL (0.04-0.35); Eosinophils % (A) 2.5 %; HCT 39.8 % (39.6-50.0); HGB 13.9 g/dL (13.0-17.0); Lymphocytes # (A) 0.77 X 10*3/uL (0.90-5.00); MCH 34.5 pg (27.0-32.0); MCHC 34.9 g/dL (32.0-37.0); MCV 98.8 FL (80.0-97.0); Mean Platelet Volume 11.1 FL (9.5-12.2); Monocytes # (A) 0.49 X 10*3/uL (0.20-1.00); Monocytes % (A) 15.3 %; NRBC Per 100 WBC 0 X 10*3/uL (0.00-0.01); Neutrophils # (A) 1.81 X 10*3/uL (1.80-7.70); Neutrophils % (A) 56.3 %; Platelet Count 99 X 10*3/uL (140-440); RBC 4.03 X 10*6/uL (4.40-5.60); RDW 11.8 % (11.5-14.5); WBC 3.21 X 10*3/uL (4.50-10.00)
[2024-12-27 10:16] LABS: BUN/Creat Ratio 13.17 Ratio (12.00-20.00); Blood Urea Nitrogen 7.9 mg/dL (9.0-27.0); Carbon Dioxide 24.7 mmol/L (21.6-31.8); Chloride 100 mmol/L (96-109); Glucose 85 mg/dL (70-110); Potassium 3.8 mmol/L (3.5-5.5); Sodium 137 mmol/L (135-145)
[2024-12-27 10:17] LABS: ALT 88 U/L (10-49); AST 91 U/L (14-35); Albumin 4.3 g/dL (3.8-4.9); Albumin/Globulin Ratio 1.72 Ratio (1.60-3.17); Alkaline Phosphatase 112 U/L (41-126); Calcium 9.4 mg/dL (8.7-10.3); Globulin 2.5 g/dL (1.6-3.3); Total Bilirubin 1.6 mg/dL (0.3-1.2); Total Protein 6.8 g/dL (6.2-8.2)
--- NOTE | 2024-12-27 17:39 | DS ---
DISCHARGE SUMMARY FINAL DIAGNOSES: 1. Acute alcohol intoxication. 2. Acute early delirium tremens, improved. 3. Hypertension. 4. Acute alcoholic hepatitis. HISTORY OF PRESENT ILLNESS: 44-year-old gentleman admitted with alcohol intoxication, improved significantly. No chest pain. No palpitation. Recommend outpatient followup and alcohol rehab. PHYSICAL EXAMINATION: VITAL SIGNS: Stable. CARDIOVASCULAR: S1, S2. ABDOMEN: Soft. DISCHARGE MEDICATIONS: 1. Librium 25 mg p.o. b.i.d. for 2 days. 2. Clonidine 0.1 mg p.o. b.i.d. Follow with primary physician. Attend alcohol rehab. Multivitamins. MMODL / IJN: [id number] / MTDD
== END 2024-12-27 13:49 | disposition home or self-care (01) ==
LOC: EC 10:37 → 6NMEDSUR 12:16
PROVIDERS: ADMIT Hospitalist; ATTEND Hospitalist
DX: F10.229 Alcohol dependence with intoxication, unspecified (principal); F10.231 Alcohol dependence with withdrawal delirium; Y90.8 Blood alcohol level of 240 mg/100 ml or more; K70.10 Alcoholic hepatitis without ascites; K21.9 Gastro-esophageal reflux disease without esophagitis; F41.9 Anxiety disorder, unspecified; I10 Essential (primary) hypertension; F17.200 Nicotine dependence, unspecified, uncomplicated; Z79.899 Other long term (current) drug therapy
CPT/HCPCS: 96376 ×2; 96361; 96372; 96374; 96375; 99285; 36415; 93005; 80053 ×2; 82150; 83690; 85025 ×2; 80306; 80320; 71045; G0378 ×2; J2060 ×2; J1644; J3411; J2470 ×2

== ENCOUNTER 2024-12-30 19:13 | Emergency (ER) | payer OTHER, MEDICARE ==
[2024-12-30 19:32] VITALS: RESP 18; TEMP 97.9
--- NOTE | 2024-12-30 19:53 | ED ---
General Adult HPI - General Chief complaint: Nausea/Vomiting/Diarrhea Stated complaint: Abd Pain,Diarrhea Time Seen by Provider: 12/30/24 19:53 Source: patient Mode of arrival: ambulatory Limitations: no limitations - History of Present Illness Initial comments: 44-year-old male presenting with chief complaint of epigastric pain. Has been ongoing for 2 days. Patient states pain gets worse with eating or drinking. No nausea or vomiting. Pain does radiate to his back. He admits to diarrhea. Also believes he is dehydrated. Patient does have history of alcohol use disorder, last drink was a week ago. - Related Data Home Medications Medication Instructions Recorded Confirmed HYDROcodone/APAP 10-325MG [[place] 1 tab PO TID 07/25/24 12/26/24 10-325] Venlafaxine HCl ER [Effexor XR] 225 mg PO DAILY 12/26/24 12/26/24 amLODIPine [Norvasc] 5 mg PO BID 12/26/24 12/26/24 Previous Rx's Medication Instructions Recorded Folic Acid 1 mg PO DAILY #30 tablet 12/27/24 Multivitamins, Thera [Multivitamin] 1 tab PO DAILY #30 tablet 12/27/24 Thiamine [Vitamin B-1] 100 mg PO DAILY #30 tablet 12/27/24 chlordiazePOXIDE HCl [Librium] 25 mg PO BID 2 Days #4 capsule 12/27/24 cloNIDine HCL [Catapres] 0.1 mg PO BID #40 tab 12/27/24 Allergies Allergy/AdvReac Type Severity Reaction Status Date / Time No Known Allergies Allergy Verified 12/30/24 19:29 Review of Systems ROS Statement: Those systems with pertinent positive or pertinent negative responses have been documented in the HPI. ROS Other: All systems not noted in ROS Statement are negative. Past Medical History Past Medical History: GERD/Reflux, Hypertension, Osteoarthritis (OA), Skin Disorder Additional Past Medical History / Comment(s): elevated liver enzymes, hiatal hernia & umbical hernia, Gout, possible sleep apnea - has never been tested, psoriasis History of Any Multi-Drug Resistant Organisms: C-DIFF Date of last positivie culture/infection: 2004 MDRO Source:: stool Past Surgical History: Orthopedic Surgery Additional Past Surgical History / Comment(s): repair of medial nerve left arm, colonoscopies, EGD Past Anesthesia/Blood Transfusion Reactions: No Reported Reaction Past Psychological History: Depression, PTSD Smoking Status: Current every day smoker Past Alcohol Use History: Daily, Heavy Past Drug Use History: None Reported - Past Family History Mother Family Medical History: No Reported History General Exam - General Exam Comments Initial Comments: Visual Physical Exam Vital signs reviewed General: Well-appearing, nontoxic, no acute distress. Head: Normocephalic, atraumatic Eyes: PERRLA, EOMI ENT: Airway patent Chest: Nonlabored breathing Skin: No visual rash, normal skin tone Neuro: Alert and oriented 3 Musculoskeletal: No gross abnormalities Limitations: no limitations Course Vital Signs 12/30/24 12/30/24 19:30 23:07 Temperature 97.9 F Pulse Rate 88 90 Respiratory 18 18 Rate Blood Pressure 137/86 143/98 O2 Sat by Pulse 98 99 Oximetry Medical Decision Making - Medical Decision Making I performed the quick note portion of this visit, electronically signed Joseph Palumbo PA-C - Lab Data Result diagrams: 12/30/24 21:43 12/30/24 21:43 Lab Results 12/30/24 12/30/24 12/30/24 Range/Units 21:19 21:43 21:43 WBC 7.6 (3.8-10.6) k/uL RBC 4.40 (4.30-5.90) m/uL Hgb 14.9 (13.0-17.5) gm/dL Hct 43.8 (39.0-53.0) % MCV 99.5 (80.0-100.0) fL MCH 33.9 (25.0-35.0) pg MCHC 34.1 (31.0-37.0) g/dL RDW 11.6 (11.5-15.5) % Plt Count 161 (150-450) k/uL MPV 8.5 Neutrophils % (Manual) 70 % Lymphocytes % (Manual) 23 % Monocytes % (Manual) 6 % Eosinophils % (Manual) 1 % Neutrophils # (Manual) 5.32 (1.3-7.7) k/uL Lymphocytes # (Manual) 1.75 (1.0-4.8) k/uL Monocytes # (Manual) 0.46 (0-1.0) k/uL Eosinophils # (Manual) 0.08 (0-0.7) k/uL Nucleated RBCs 0 (0-0) /100 WBC Manual Slide Review Performed Sodium 135 L (137-145) mmol/L Potassium 3.6 (3.5-5.1) mmol/L Chloride 106 (98-107) mmol/L Carbon Dioxide 18 L (22-30) mmol/L Anion Gap 11 mmol/L BUN 16 (9-20) mg/dL Creatinine 0.74 (0.66-1.25) mg/dL Est GFR (CKD-EPI)AfAm >90 (>60 ml/min/1.73 sqM) Est GFR (CKD-EPI)NonAf >90 (>60 ml/min/1.73 sqM) Glucose 99 (74-99) mg/dL Calcium 10.2 (8.4-10.2) mg/dL Total Bilirubin 1.1 (0.2-1.3) mg/dL AST 71 H (17-59) U/L ALT 106 H (4-49) U/L Alkaline Phosphatase 100 (38-126) U/L Total Protein 7.8 (6.3-8.2) g/dL Albumin 4.8 (3.5-5.0) g/dL Amylase 41 (30-110) U/L Lipase 154 (23-300) U/L Urine Color Urine Appearance (Clear) Urine pH (5.0-8.0) Ur Specific [place] (1.001-1.035) Urine Protein (Negative) Urine Glucose (UA) (Negative) Urine Ketones (Negative) Urine Blood (Negative) Urine Nitrite (Negative) Urine Bilirubin (Negative) Urine Urobilinogen (<2.0) mg/dL Ur Leukocyte Esterase (Negative) Group A Strep (PCR) NOT DETECTED (Not Detectd) 12/30/24 Range/Units 23:03 WBC (3.8-10.6) k/uL RBC (4.30-5.90) m/uL Hgb (13.0-17.5) gm/dL Hct (39.0-53.0) % MCV (80.0-100.0) fL MCH (25.0-35.0) pg MCHC (31.0-37.0) g/dL RDW (11.5-15.5) % Plt Count (150-450) k/uL MPV Neutrophils % (Manual) % Lymphocytes % (Manual) % Monocytes % (Manual) % Eosinophils % (Manual) % Neutrophils # (Manual) (1.3-7.7) k/uL Lymphocytes # (Manual) (1.0-4.8) k/uL Monocytes # (Manual) (0-1.0) k/uL Eosinophils # (Manual) (0-0.7) k/uL Nucleated RBCs (0-0) /100 WBC Manual Slide Review Sodium (137-145) mmol/L Potassium (3.5-5.1) mmol/L Chloride (98-107) mmol/L Carbon Dioxide (22-30) mmol/L Anion Gap mmol/L BUN (9-20) mg/dL Creatinine (0.66-1.25) mg/dL Est GFR (CKD-EPI)AfAm (>60 ml/min/1.73 sqM) Est GFR (CKD-EPI)NonAf (>60 ml/min/1.73 sqM) Glucose (74-99) mg/dL Calcium (8.4-10.2) mg/dL Total Bilirubin (0.2-1.3) mg/dL AST (17-59) U/L ALT (4-49) U/L Alkaline Phosphatase (38-126) U/L Total Protein (6.3-8.2) g/dL Albumin (3.5-5.0) g/dL Amylase (30-110) U/L Lipase (23-300) U/L Urine Color Yellow Urine Appearance Clear (Clear) Urine pH 5.5 (5.0-8.0) Ur Specific [place] 1.037 H (1.001-1.035) Urine Protein Trace H (Negative) Urine Glucose (UA) Negative (Negative) Urine Ketones Trace H (Negative) Urine Blood Negative (Negative) Urine Nitrite Negative (Negative) Urine Bilirubin Negative (Negative) Urine Urobilinogen 2.0 (<2.0) mg/dL Ur Leukocyte Esterase Negative (Negative) Group A Strep (PCR) (Not Detectd) Disposition Clinical Impression: Abdominal pain Disposition: HOME SELF-CARE Condition: Good Instructions (If sedation given, give patient instructions): Abdominal Pain (ED) Additional Instructions: Follow-up with your PCP. Report back to ER with any new or worsening symptoms. Is patient prescribed a controlled substance at d/c from ED?: No Referrals: Kulwinder,Liam, DO [Primary Care Provider] - 1-2 days Time of Disposition: 01:07
--- NOTE | 2024-12-30 20:11 | XR ---
EXAMINATION TYPE: XR chest 2V DATE OF EXAM: 12/30/2024 8:03 PM COMPARISON: Chest radiographs from 12/26/2024. CLINICAL INDICATION: Male, 44 years old with history of Chest pain with swallowing; TECHNIQUE: XR chest 2V Frontal and lateral views of the chest. FINDINGS: Lungs/Pleura: There is no evidence of pleural effusion, focal consolidation, or pneumothorax. Pulmonary vascularity: Unremarkable. Heart/mediastinum: Cardiomediastinal silhouette is unremarkable. Musculoskeletal: No acute osseous pathology. Other findings: None IMPRESSION: No acute cardiopulmonary disease/process. [facility], , 12/30/2024 8:09 PM
[2024-12-30] MEDS: HYDROmorphone 0.5 MG/0.5 ML SYRINGE IVP STA (21:43)
[2024-12-30] MEDS: SODIUM CHLORIDE 0.9% 1,000 ML IV STA (21:45)
[2024-12-30 21:49] LABS: HCT 43.8 % (39.0-53.0); HGB 14.9 gm/dL (13.0-17.5); MCH 33.9 pg (25.0-35.0); MCHC 34.1 g/dL (31.0-37.0); MCV 99.5 fL (80.0-100.0); Mean Platelet Volume 8.5; Platelet Count 161 k/uL (150-450); RDW 11.6 % (11.5-15.5); WBC 7.6 k/uL (3.8-10.6)
[2024-12-30 22:21] LABS: Eosinophils # (M) 0.08 k/uL (0-0.7); Lymphocytes # (M) 1.75 k/uL (1.0-4.8); Monocytes # (M) 0.46 k/uL (0-1.0); Neutrophils # (M) 5.32 k/uL (1.3-7.7); Neutrophils % (M) 70 %; Nucleated Red Blood Cells 0 /100 WBC (0-0); Total Cells Counted 100
[2024-12-30 22:25] LABS: ALT 106 U/L (4-49); AST 71 U/L (17-59); African American GFR (CKD) >90 (>60 ml/min/1.73 sqM); Albumin 4.8 g/dL (3.5-5.0); Alkaline Phosphatase 100 U/L (38-126); Amylase 41 U/L (30-110); Anion Gap 11 mmol/L; Blood Urea Nitrogen 16 mg/dL (9-20); Calcium 10.2 mg/dL (8.4-10.2); Carbon Dioxide 18 mmol/L (22-30); Chloride 106 mmol/L (98-107); Glucose 99 mg/dL (74-99); Lipase 154 U/L (23-300); Non-African American GFR(CKD) >90 (>60 ml/min/1.73 sqM); Potassium 3.6 mmol/L (3.5-5.1); Sodium 135 mmol/L (137-145); Total Bilirubin 1.1 mg/dL (0.2-1.3); Total Protein 7.8 g/dL (6.3-8.2)
[2024-12-30] MEDS: HYDROmorphone 1 MG/ML 1 ML SYRINGE IVP STA (22:58)
[2024-12-30 23:42] LABS: Appearance,Urine Clear (Clear); Bilirubin,Urine Negative (Negative); Blood,Urine Negative (Negative); Color,Urine Yellow; Glucose,Urine (UA) Negative (Negative); Ketones,Urine Trace (Negative); Leukocyte Esterase,Urine Negative (Negative); Nitrite,Urine Negative (Negative); PH, Urine 5.5 (5.0-8.0); Protein,Urine Trace (Negative); Specific Gravity,Urine 1.037 (1.001-1.035)
--- NOTE | 2024-12-31 00:12 | US ---
EXAM: US Abdomen Limited, Right Upper Quadrant CLINICAL HISTORY: ITS.REASON US Reason: Epigastric pain TECHNIQUE: Real-time ultrasound of the right upper quadrant with image documentation. COMPARISON: No relevant prior studies available. FINDINGS: Liver: Echogenic liver suggesting steatosis. Liver measures 16 cm. No intrahepatic bile duct dilation. Gallbladder: No cholelithiasis or gallbladder wall thickening. Negative Olmos sign. Common bile duct: No biliary dilatation. CBD 4 mm. Pancreas: Unremarkable as visualized. Right kidney: Unremarkable. Right kidney measures 10.9 cm. No hydronephrosis. IMPRESSION: 1. Echogenic liver suggesting steatosis. 2. No cholelithiasis or gallbladder wall thickening. Negative Olmos sign.
[2024-12-31] MEDS: LIDOCAINE VISCOUS 2% 15 ML CUP PO ONE (01:09)
[2024-12-31] MEDS: FAMOTIDINE 20 MG/2 ML VIAL IV STA (01:09)
[2024-12-31 01:11] VITALS: BP 138/86; PULSE 89
== END 2024-12-31 01:11 | disposition home or self-care (01) ==
LOC: EC 19:13
DX: R10.13 Epigastric pain (principal); F17.200 Nicotine dependence, unspecified, uncomplicated
CPT/HCPCS: 36415; 93005; 87651; 80053; 82150; 83690; 85025; 81003; 71046; 76705; 99284; 96374; 96375; 96361 ×3; J1171 ×2

== ENCOUNTER 2025-03-19 12:38 | Observation (INO) | payer OTHER, MEDICARE ==
[2025-03-19 13:49] LABS: Basophils # (A) 0.09 10*3/uL (0.00-0.10); Basophils % (A) 1.5 %; Eosinophils # (A) 0.09 10*3/uL (0.04-0.35); Eosinophils % (A) 1.5 %; HCT 43.1 % (39.6-50.0); HGB 15.3 g/dL (13.0-17.0); Lymphocytes # (A) 1.96 10*3/uL (0.90-5.00); Lymphocytes % (A) 32.9 %; MCH 33.8 pg (27.0-32.0); MCHC 35.5 g/dL (32.0-37.0); MCV 95.1 fL (80.0-97.0); Mean Platelet Volume 9.9 fL (9.5-12.2); Monocytes # (A) 0.71 10*3/uL (0.20-1.00); Monocytes % (A) 11.9 %; Neutrophils # (A) 3.09 10*3/uL (1.80-7.70); Neutrophils % (A) 51.9 %; Platelet Count 148 10*3/uL (140-440); RBC 4.53 10*6/uL (4.40-5.60); RDW 13.1 % (11.5-14.5); WBC 5.96 10*3/uL (4.50-10.00)
[2025-03-19 13:51] LABS: ALT 64 U/L (4-49); AST 83 U/L (17-59); African American GFR (CKD) >90 (>60 ml/min/1.73 sqM); Albumin 5.2 g/dL (3.5-5.0); Alkaline Phosphatase 125 U/L (38-126); Anion Gap 17 mmol/L; Blood Urea Nitrogen 6 mg/dL (9-20); Calcium 9.7 mg/dL (8.4-10.2); Carbon Dioxide 20 mmol/L (22-30); Chloride 102 mmol/L (98-107); Glucose 88 mg/dL (74-99); Non-African American GFR(CKD) >90 (>60 ml/min/1.73 sqM); Potassium 4.2 mmol/L (3.5-5.1); Sodium 139 mmol/L (137-145); Total Bilirubin 1.1 mg/dL (0.2-1.3); Total Protein 8.3 g/dL (6.3-8.2)
--- NOTE | 2025-03-19 14:16 | ED ---
General Adult HPI - General Source: patient, RN notes reviewed, old records reviewed Mode of arrival: wheelchair Limitations: no limitations <Carmen Banda - Last Filed: 03/19/25 18:26> <Antony Vega - Last Filed: 03/19/25 21:36> - General Chief complaint: Dizziness Stated complaint: Chest Pain/Dizziness Time Seen by Provider: 03/19/25 12:47 - History of Present Illness Initial comments: 44-year-old male with a past medical history of alcohol use disorder presents with complaints of dizziness and chest pain. States 2 days ago while he was taking shots he is for started noticing some dizziness and left-sided chest pain that radiated to the back and scapula on the left side. States the chest pain is dull in nature, comes and goes and occurs predominantly at rest. Reports he does not notice it getting significantly worse on exertion. States he cannot point to 1 exacerbating feature for the chest pain. Reports the chest pain has come and gone as well as the dizziness. Describes the dizziness as only when he walks, at rest he does not experience any of it. (Carmen Banda) - Related Data Home Medications Medication Instructions Recorded Confirmed HYDROcodone/APAP 10-325MG [[place] 1 tab PO TID 07/25/24 03/19/25 10-325] Venlafaxine HCl ER [Effexor XR] 75 mg PO DAILY 12/26/24 03/19/25 amLODIPine [Norvasc] 5 mg PO DAILY 12/26/24 03/19/25 Omeprazole 20 mg PO DAILY 03/19/25 03/19/25 Allergies Allergy/AdvReac Type Severity Reaction Status Date / Time No Known Allergies Allergy Verified 03/19/25 12:49 Review of Systems ROS Other: All systems not noted in ROS Statement are negative. <Carmen Banda - Last Filed: 03/19/25 18:26> ROS Other: All systems not noted in ROS Statement are negative. <Antony Vega - Last Filed: 03/19/25 21:36> ROS Statement: Those systems with pertinent positive or pertinent negative responses have been documented in the HPI. Past Medical History Past Medical History: GERD/Reflux, Hypertension, Osteoarthritis (OA), Skin Disorder Additional Past Medical History / Comment(s): elevated liver enzymes, hiatal hernia & umbical hernia, Gout, possible sleep apnea - has never been tested, psoriasis History of Any Multi-Drug Resistant Organisms: C-DIFF Date of last positivie culture/infection: 2004 MDRO Source:: stool Past Surgical History: Orthopedic Surgery Additional Past Surgical History / Comment(s): repair of medial nerve left arm, colonoscopies, EGD Past Anesthesia/Blood Transfusion Reactions: No Reported Reaction Past Psychological History: Depression, PTSD Smoking Status: Current every day smoker Past Alcohol Use History: Daily, Heavy Past Drug Use History: None Reported - Past Family History Mother Family Medical History: No Reported History <Carmen Banda - Last Filed: 03/19/25 18:26> General Exam Limitations: no limitations <Carmen Banda - Last Filed: 03/19/25 18:26> - General Exam Comments Initial Comments: GENERAL: In no apparent distress at the time of examination. Pleasant and cooperative. HEENT: Head is atraumatic, normocephalic. Pupils are equal, round, and reactive to light. Sclerae anicteric. Conjunctivae are clear. Mucus membranes of the mouth are moist. Neck is supple. RESPIRATORY: Clear to auscultation. No wheezes, rales, or rhonchi. No use of accessory muscles. Patient maintaining oxygen saturation greater than 92%. No chest wall tenderness is noted on palpation or with deep breathing. CARDIOVASCULAR: Regular rate and rhythm. S1 and S2 noted. No systolic or diastolic murmur auscultated. No JVD noted. No S3 or S4 noted. GASTROINTESTINAL: No distention noted. Abdomen soft and round. Normal active bowel sounds auscultated x 4 quadrants. No pain or tenderness noted upon palpation. INTEGUMENTARY: No cyanosis. No jaundice. No rashes noted. No cellulitis noted. EXTREMITIES: 2+ peripheral pulses. No evidence of peripheral edema. No calf tenderness noted. NEUROLOGIC: Cranial nerves II-XII intact. PSYCHIATRIC: Awake, alert, and oriented X 3. Appropriate affect. Intact judgement and insight. (Carmen Banda) Course Vital Signs 03/19/25 03/19/25 03/19/25 12:49 13:23 14:21 Temperature 98 F Pulse Rate 96 Pulse Rate [ 96 Pulse Oximetery ] Pulse Rate [ 93 Sitting Pulse Oximetery] Pulse Rate [ 77 Standing Pulse Oximetery] Pulse Rate [ 85 Supine Pulse Oximetery] Respiratory 16 Rate Blood Pressure 132/82 Blood Pressure 139/77 [Left Arm Sitting] Blood Pressure 101/66 [Left Arm Standing] Blood Pressure 133/78 [Left Arm Supine] O2 Sat by Pulse 98 Oximetry 03/19/25 17:59 Temperature 98.1 F Pulse Rate 86 Pulse Rate [ Pulse Oximetery ] Pulse Rate [ Sitting Pulse Oximetery] Pulse Rate [ Standing Pulse Oximetery] Pulse Rate [ Supine Pulse Oximetery] Respiratory 20 Rate Blood Pressure 153/106 Blood Pressure [Left Arm Sitting] Blood Pressure [Left Arm Standing] Blood Pressure [Left Arm Supine] O2 Sat by Pulse 100 Oximetry Medical Decision Making - Lab Data Result diagrams: 03/19/25 13:20 03/19/25 13:20 <Carmen Banda - Last Filed: 03/19/25 18:26> - Lab Data Result diagrams: 03/19/25 13:20 03/19/25 13:20 <Antony Vega - Last Filed: 03/19/25 21:36> - Medical Decision Making Was pt. sent in by a medical professional or institution (, PA, [employer], urgent care, hospital, or [facility]...) When possible be specific @ -No Did you speak to anyone other than the patient for history (EMS, parent, family, police, friend...)? What history was obtained from this source @ -No Did you review nursing and triage notes (agree or disagree)? Why? @ -I reviewed and agree with nursing and triage notes Were old charts reviewed (outside hosp., previous admission, EMS record, old EKG, old radiological studies, urgent care reports/EKG's, [facility] records)? Report findings @ -No old charts were reviewed Differential Diagnosis? @ -Differential Dizziness: Benign paroxysmal positional Vertigo, Meniere's disease, otitis media, acoustic neuroma, vertebrobasilar insufficiency, cerebellar stroke, encephalitis, hypovolemic, arrhythmia, coronary artery syndrome, anemia, differential Chest Pain: Stable Angina, Unstable Angina, STEMI, NSTEMI Aortic Dissection, Pneumothorax, Musculoskeletal, Esophageal Spasm GERD, Cholecystitis, Pancreatitis, Zoster, this is not meant to be an all-inclusive list. EKG interpreted by me (3pts min.). @ -Shows normal sinus rhythm with short [place] interval X-rays interpreted by me (1pt min.). @ -Interpreted by me, no acute cardiopulmonary process CT interpreted by me (1pt min.). @ -None done U/S interpreted by me (1pt. min.). @ -None done What testing was considered but not performed or refused? (CT, X-rays, U/S, labs)? Why? @ -None What meds were considered but not given or refused? Why? @ -None Did you discuss the management of the patient with other professionals (professionals i.e. , PA, [employer], lab, RT, psych nurse, social director, director of partnerships, teacher, foreign policy officer, housing case manager)? Give summary @ -No Was smoking cessation discussed for >3mins.? @ -No Was critical care preformed (if so, how long)? @ -No Were there social determinants of health that impacted care today? How? (Mario elessness, low income, unemployed, alcoholism, drug addiction, transportation, low edu. Level, literacy, decrease access to med. care, [facility], rehab)? @ -No Was there de-escalation of care discussed even if they declined (Discuss DNR or withdrawal of care, Hospice)? DNR status @ -No What co-morbidities impacted this encounter? (DM, HTN, Smoking, COPD, CAD, Cancer, CVA, ARF, Chemo, Hep., AIDS, mental health diagnosis, sleep apnea, morbid obesity)? @ -None Was patient admitted / discharged? Hospital course, mention meds given and route, prescriptions, significant lab abnormalities, going to OR and other pertinent info. @ -Admitted, 44-year-old male with dizziness and chest pain for the last 2 days. Describes the chest pain as waxing and waning dominantly occurring at rest, dull in nature, left-sided radiating to the back. Dizziness seemed to subside once 1 L bolus NS was given. Troponin was within normal limits and EKG showed normal sinus rhythm. Given the patient's story about the chest pain it was concerning for potential further cardiac issues and need for further workup. Patient had a stress test done in 2019 which was within normal limits. [facility] on- call physician was called and accepted the admission. Undiagnosed new problem with uncertain prognosis? @ -No Drug Therapy requiring intensive monitoring for toxicity (Heparin, Nitro, Insulin, Cardizem)? @ -No Were any procedures done? @ -No Diagnosis/symptom? @ -Chest pain Acute, or Chronic, or Acute on Chronic? @ -Default Uncomplicated (without systemic symptoms) or Complicated (systemic symptoms)? @ -Default Side effects of treatment? @ -No Exacerbation, Progression, or Severe Exacerbation? @ -No Poses a threat to life or bodily function? How? (Chest pain, USA, GA, pneumonia, PE, COPD, DKA, ARF, appy, cholecystitis, CVA, Diverticulitis, Homicidal, Suicidal, threat to staff... and all critical care pts) @ -Yes, chest pain could be an indicator of potential cardiac pathology such as angina, GA, aortic dissection, etc.. (Carmen Banda) I personally saw the patient and performed the critical portion of the service. I discussed the patient care with the resident. I directed management, care p vicente and final disposition of the patient. This includes, but not limited to, review of all lab work, radiological studies, EKG's, consultations, vital signs, and nursing notes. EKG interpreted by me (3pts min.) @As above X-Rays interpreted by me (1 pt min.) @Chest x-ray shows no acute dramality CT interpreted by me ( 1pt min.) @None U/S interpreted by me (1 pt min.) @None Critical care time of 0 minutes excluding separately billable procedures was spent in conjunction with critical care activities provided by the Resident and Attending simultaneously. I was present during no procedures for all critical portions of the procedure and as immediately available to furnish service during the entire procedure. (Antony Vega) - Lab Data Lab Results 03/19/25 03/19/25 03/19/25 Range/Units 13:20 13:20 13:20 WBC 5.96 (4.50-10.00) 10*3/uL RBC 4.53 (4.40-5.60) 10*6/uL Hgb 15.3 (13.0-17.0) g/dL Hct 43.1 (39.6-50.0) % MCV 95.1 (80.0-97.0) fL MCH 33.8 H (27.0-32.0) pg MCHC 35.5 (32.0-37.0) g/dL Plt Count 148 (140-440) 10*3/uL MPV 9.9 (9.5-12.2) fL Immature Gran % (Auto) 0.3 % Neutrophils % 51.9 % Lymphocytes % 32.9 % Monocytes % 11.9 % Eosinophils % 1.5 % Basophils % 1.5 % Immature Gran # 0.02 (0.00-0.04) 10*3/uL Neutrophils # 3.09 (1.80-7.70) 10*3/uL Lymphocytes # 1.96 (0.90-5.00) 10*3/uL Monocytes # 0.71 (0.20-1.00) 10*3/uL Eosinophils # 0.09 (0.04-0.35) 10*3/uL Basophils # 0.09 (0.00-0.10) 10*3/uL Sodium 139 (137-145) mmol/L Potassium 4.2 (3.5-5.1) mmol/L Chloride 102 (98-107) mmol/L Carbon Dioxide 20 L (22-30) mmol/L Anion Gap 17 mmol/L BUN 6 L (9-20) mg/dL Creatinine 0.60 L (0.66-1.25) mg/dL Est GFR (CKD-EPI)AfAm >90 (>60 ml/min/1.73 sqM) Est GFR (CKD-EPI)NonAf >90 (>60 ml/min/1.73 sqM) Glucose 88 (74-99) mg/dL Calcium 9.7 (8.4-10.2) mg/dL Total Bilirubin 1.1 (0.2-1.3) mg/dL AST 83 H (17-59) U/L ALT 64 H (4-49) U/L Alkaline Phosphatase 125 (38-126) U/L Troponin I <0.012 (0.000-0.034) ng/mL Total Protein 8.3 H (6.3-8.2) g/dL Albumin 5.2 H (3.5-5.0) g/dL Serum Alcohol mg/dL 03/19/25 Range/Units 15:21 WBC (4.50-10.00) 10*3/uL RBC (4.40-5.60) 10*6/uL Hgb (13.0-17.0) g/dL Hct (39.6-50.0) % MCV (80.0-97.0) fL MCH (27.0-32.0) pg MCHC (32.0-37.0) g/dL Plt Count (140-440) 10*3/uL MPV (9.5-12.2) fL Immature Gran % (Auto) % Neutrophils % % Lymphocytes % % Monocytes % % Eosinophils % % Basophils % % Immature Gran # (0.00-0.04) 10*3/uL Neutrophils # (1.80-7.70) 10*3/uL Lymphocytes # (0.90-5.00) 10*3/uL Monocytes # (0.20-1.00) 10*3/uL Eosinophils # (0.04-0.35) 10*3/uL Basophils # (0.00-0.10) 10*3/uL Sodium (137-145) mmol/L Potassium (3.5-5.1) mmol/L Chloride (98-107) mmol/L Carbon Dioxide (22-30) mmol/L Anion Gap mmol/L BUN (9-20) mg/dL Creatinine (0.66-1.25) mg/dL Est GFR (CKD-EPI)AfAm (>60 ml/min/1.73 sqM) Est GFR (CKD-EPI)NonAf (>60 ml/min/1.73 sqM) Glucose (74-99) mg/dL Calcium (8.4-10.2) mg/dL Total Bilirubin (0.2-1.3) mg/dL AST (17-59) U/L ALT (4-49) U/L Alkaline Phosphatase (38-126) U/L Troponin I (0.000-0.034) ng/mL Total Protein (6.3-8.2) g/dL Albumin (3.5-5.0) g/dL Serum Alcohol 139 mg/dL Disposition <Carmen Banda - Last Filed: 03/19/25 18:26> <Antony Vega - Last Filed: 03/19/25 21:36> Clinical Impression: Chest pain Disposition: ADMITTED IP TO THIS HOSP
[2025-03-19] MEDS: SODIUM CHLORIDE 0.9% 1,000 ML IV ONE (14:30)
--- NOTE | 2025-03-19 15:17 | XR ---
EXAMINATION TYPE: XR chest 2V DATE OF EXAM: 03/19/2025 2:32 PM COMPARISON: 12/30/2024 CLINICAL INDICATION: Male, 44 years old with history of CP, TECHNIQUE: XR chest 2V view(s) obtained. FINDINGS: The heart size is normal. The pulmonary vasculature is normal. The lungs are clear. IMPRESSION: 1. No acute pulmonary process. [facility], , 03/19/2025 3:15 PM
[2025-03-19] MEDS ORDERED: LORazepam 1 MG TAB PO PRN (17:35)
[2025-03-19] MEDS ORDERED: LORazepam 0.5 MG TAB PO PRN (17:35)
[2025-03-19] MEDS ORDERED: NALOXONE 0.4 MG/ML 1 ML VIAL IV PRN (17:43)
[2025-03-19] MEDS: ONDANSETRON 4 MG/2 ML VIAL IVP PRN (17:58)
[2025-03-19] MEDS: LORazepam 1 MG TAB PO PRN ×2 (18:04→20:35)
[2025-03-20] MEDS: PANTOPRAZOLE 40 MG TABLET PO SCH (06:00)
[2025-03-20 07:20] VITALS: BP 163/99; PULSE 85; TEMP 97.8
[2025-03-20] MEDS: HYDROcodone/APAP 10-325MG 1 EACH TAB PO SCH (08:53)
[2025-03-20] MEDS: amLODIPine 5 MG TAB PO SCH (08:53)
[2025-03-20] MEDS: VENLAFAXINE HCL ER 75 MG CAP PO SCH (08:53)
[2025-03-20 09:24] VITALS: BMI 24.0
--- NOTE | 2025-03-20 10:19 | P.CRDCN ---
History of Present Illness Consult date: 03/20/25 Consult reason: chest pain History of present illness: This is a 44-year-old male with no previous cardiac history and does not follow with a loader. He has a past medical history of hypertension, GERD. We have been asked to evaluate for chest pain. Patient states that yesterday he developed episode of pressure in his chest along with sweating and clamminess. He has never had anything like this before. Onset while at rest. The sensation lasted 15 minutes. Initially thought it was an anxiety attack. He is normally quite active and does not experience chest pain with activity. Chest pain is not worse with deep breathing. He also has palpitations. Regarding alcohol intake, he states he had 3 beers yesterday because he thought he was having an anxiety attack and the alcohol would calm his nerves. He had vomiting yesterday as well as cough. He denies wheezing. He denies history of ulcer or any blood in his stool. He does have history of hypertension but no diabetes. He denies any chest pain at this time. There is suspicion for obstructive sleep apnea but patient has not had a sleep study done. Patient does drink alcohol on daily basis. He states he also drinks a lot of caffeine and he is a tobacco smoker. Blood pressure 163/99, heart rate 85, pulse ox 90% on room air. Patient is status post 1 L of IV fluid and has been started on the CIWA protocol. -EK EKGs reviewed with sinus rhythm and no acute ST-T wave changes. -Chest x-ray: No acute process. -Laboratory studies: CBC is unremarkable. Creatinine 0.6. AST 83, ALT 64. Troponin negative x 1. Serum alcohol 139. -Home cardiac medications: Amlodipine 5 mg daily. -Exercise stress test performed 09/09/2019 at [facility] revealed exce llent exercise tolerance. Negative stress test by EKG criteria. Review Of Systems: At the time of my exam: CONSTITUTIONAL: Denies fever or chills. HEENT: Denies blurred vision, vision changes, or eye pain. Denies hemoptysis CARDIOVASCULAR: Denies chest pain. Denies orthopnea. Denies PND. Denies p alpitations RESPIRATORY: Denies shortness of breath. GASTROINTESTINAL: Denies abdominal pain. Denies nausea or vomiting. HEMATOLOGIC: Denies bleeding disorders. GENITOURINARY: Denies any blood in urine. SKIN: Denies puritis. Denies rash. Physical examination: Gen: This is a 44-year-old male in no acute distress. VS: reviewed HEENT: Head is atraumatic, normocephalic. Pupils equal, round. Sclerae is anicteric. NECK: Supple. No JVD. LUNGS: Clear to auscultation. No wheezes or rhonchi. No intercostal retractions. HEART: Regular rate and rhythm. No murmur. ABDOMEN: Soft No tenderness. EXTREMITIES: No pedal edema. No calf tenderness. NEUROLOGICAL: Patient is awake, alert and oriented x3. Assessment: Atypical chest pain, acute coronary syndrome ruled out Alcohol intoxication Hypertension GERD Plan: Resume amlodipine, monitor blood pressure and adjust amlodipine as appropriate Obtain 2-D echocardiogram and Doppler study to assess cardiac structure and function If echocardiogram is unremarkable, patient is cleared for discharge. Patient may follow-up with his PCP for outpatient stress testing. Thank you kindly for this consultation. Nurse practitioner note has been reviewed, I agree with documented findings and plan of care. Patient was seen and examined. Past Medical History Past Medical History: GERD/Reflux, Hypertension, Osteoarthritis (OA), Skin Disorder Additional Past Medical History / Comment(s): elevated liver enzymes, hiatal hernia & umbical hernia, Gout, possible sleep apnea - has never been tested, psoriasis History of Any Multi-Drug Resistant Organisms: C-DIFF Date of last positivie culture/infection: 2004 MDRO Source:: stool Past Surgical History: Orthopedic Surgery Additional Past Surgical History / Comment(s): repair of medial nerve left arm, colonoscopies, EGD Past Anesthesia/Blood Transfusion Reactions: No Reported Reaction Past Psychological History: Depression, PTSD Smoking Status: Current every day smoker Past Alcohol Use History: Daily, Heavy Additional Past Alcohol Use History / Comment(s): 10-15 beers daily, 1ppd since teens Past Drug Use History: None Reported Additional Drug Use History / Comment(s): rare use - Past Family History Mother Family Medical History: No Reported History Medications and Allergies Home Medications Medication Instructions Recorded Confirmed Type HYDROcodone/APAP 10-325MG [[place] 1 tab PO TID 07/25/24 03/19/25 History 10-325] Venlafaxine HCl ER [Effexor XR] 75 mg PO DAILY 12/26/24 03/19/25 History amLODIPine [Norvasc] 5 mg PO DAILY 12/26/24 03/19/25 History Omeprazole 20 mg PO DAILY 03/19/25 03/19/25 History Allergies Allergy/AdvReac Type Severity Reaction Status Date / Time No Known Allergies Allergy Verified 03/19/25 12:49 Physical Exam Vitals: Vital Signs Temp Pulse Pulse Pulse Pulse Pulse Resp 03/20/25 07:00 97.8 F 85 16 03/20/25 02:35 81 77 18 03/20/25 00:19 98.1 F 81 18 03/19/25 17:59 98.1 F 86 20 03/19/25 14:21 93 77 85 03/19/25 13:23 96 03/19/25 12:49 98 F 96 16 BP BP BP BP BP Pulse Ox 03/20/25 07:00 163/99 98 03/20/25 02:35 03/20/25 00:19 121/74 97 03/19/25 17:59 153/106 100 03/19/25 14:21 139/77 101/66 133/78 03/19/25 13:23 03/19/25 12:49 132/82 98 Intake and Output 03/19/25 03/20/25 03/20/25 22:59 06:59 14:59 Intake Total 118 Balance 118 Intake: Oral 118 Other: Voiding Method Toilet # Voids 1 Weight 73.936 kg 73.936 kg Results 03/19/25 13:20 03/19/25 13:20 Cardiac Enzymes 03/19/25 03/19/25 Range/Units 13:20 13:20 AST 83 H (17-59) U/L Troponin I <0.012 (0.000-0.034) ng/mL CBC 03/19/25 Range/Units 13:20 WBC 5.96 (4.50-10.00) 10*3/uL RBC 4.53 (4.40-5.60) 10*6/uL Hgb 15.3 (13.0-17.0) g/dL Hct 43.1 (39.6-50.0) % Plt Count 148 (140-440) 10*3/uL Comprehensive Metabolic Panel 03/19/25 Range/Units 13:20 Sodium 139 (137-145) mmol/L Potassium 4.2 (3.5-5.1) mmol/L Chloride 102 (98-107) mmol/L Carbon Dioxide 20 L (22-30) mmol/L BUN 6 L (9-20) mg/dL Creatinine 0.60 L (0.66-1.25) mg/dL Glucose 88 (74-99) mg/dL Calcium 9.7 (8.4-10.2) mg/dL AST 83 H (17-59) U/L ALT 64 H (4-49) U/L Alkaline Phosphatase 125 (38-126) U/L Total Protein 8.3 H (6.3-8.2) g/dL Albumin 5.2 H (3.5-5.0) g/dL Current Medications Generic Name Dose Route Start Last Admin Trade Name Freq PRN Reason Stop Dose Admin Hydrocodone Bitart/Acetaminophen 1 each 03/20/25 09:00 03/20/25 08:53 Hydrocodone/Apap 10-325mg 1 Each Tab PO 1 each TID CHALO Administration Amlodipine Besylate 5 mg 03/20/25 09:00 03/20/25 08:53 Amlodipine 5 Mg Tab PO 5 mg DAILY CHALO Administration Lorazepam 0.5 mg 03/19/25 17:35 Lorazepam 0.5 Mg Tab PO Q4HR PRN Ciwa 4 To 5 Lorazepam 1 mg 03/19/25 17:35 Lorazepam 1 Mg Tab PO Q4HR PRN Ciwa 6 To 7 Lorazepam 2 mg 03/19/25 17:35 03/19/25 18:04 Lorazepam 1 Mg Tab PO 2 mg Q2HR PRN Administration Ciwa 10 or greater Lorazepam 2 mg 03/19/25 17:35 03/19/25 23:17 Lorazepam 1 Mg Tab PO 2 mg Q3HR PRN Administration Ciwa 8 To 9 Naloxone HCl 0.2 mg 03/19/25 17:43 Naloxone 0.4 Mg/Ml 1 Ml Vial IV Q2M PRN Opioid Reversal Ondansetron HCl 4 mg 03/19/25 17:33 03/19/25 17:58 Ondansetron 4 Mg/2 Ml Vial IVP 4 mg Q6H PRN Administration Nausea Pantoprazole Sodium 40 mg 03/20/25 07:30 03/20/25 06:00 Pantoprazole 40 Mg Tablet PO 40 mg [id number] CHALO Administration Venlafaxine HCl 75 mg 03/20/25 09:00 03/20/25 08:53 Venlafaxine Hcl Er 75 Mg Cap PO 75 mg DAILY CHALO Administration Intake and Output 03/19/25 03/20/25 03/20/25 22:59 06:59 14:59 Intake Total 118 Balance 118 Intake: Oral 118 Other: Voiding Method Toilet # Voids 1 Weight 73.936 kg 73.936 kg Patient Weight 03/21/25 06:59 Weight 73.936 kg 03/19/25 13:20 03/19/25 13:20
[2025-03-20 11:27] VITALS: RESP 18
--- NOTE | 2025-03-20 13:12 | CA ---
Transthoracic Echo Report Name: Darrell Myles Age: 44 Gender: M : 1980 Exam Date: 03/20/2025 11:08 Exam Location: [facility] Ht (in): 69 Wt (lb): 163 Ordering Physician: Raisa Colin Attending/Referring Phys: [id number], Dixie It Support Technician Susanna Llanes RDCS Procedure CPT: Indications: LVF, CP Cardiac Hx: Technical Quality: Good Contrast 1: Total Dose (mL): Contrast 2: Total Dose (mL): MEASUREMENTS (Male / Female) Normal Values 2D ECHO LV Diastolic Diameter PLAX 4.6 cm 4.2 - 5.9 / 3.9 - 5.3 cm LV Systolic Diameter PLAX 2.9 cm IVS Diastolic Thickness 1.2 cm 0.6 - 1.0 / 0.6 - 0.9 cm LVPW Diastolic Thickness 1.1 cm 0.6 - 1.0 / 0.6 - 0.9 cm LV Relative Wall Thickness 0.5 RV Internal Dim ED PLAX 1.6 cm LVOT Diameter 1.9 cm LA Systolic Diameter LX 3.4 cm 3.0 - 4.0 / 2.7 - 3.8 cm LV Diastolic Volume MOD BP 76.0 cm??? 67 - 155 / 56 - 104 cm??? LV Systolic Volume MOD BP 33.3 cm??? 22 - 58 / 19 - 49 cm??? LV Ejection Fraction MOD BP 56.2 % >= 55 % LV Cardiac Index MOD BP 1794.9 cm???/min???m??? LV Diastolic Volume MOD 4C 98.4 cm??? LV Systolic Volume MOD 4C 33.9 cm??? LV Ejection Fraction MOD 4C 65.6 % LV Cardiac Index MOD 4C 2712.4 cm???/min???m??? LV Diastolic Length 4C 7.8 cm LV Systolic Length 4C 6.0 cm LV Diastolic Volume MOD 2C 59.2 cm??? LV Systolic Volume MOD 2C 29.4 cm??? LV Ejection Fraction MOD 2C 50.4 % LV Cardiac Index MOD 2C 1254.9 cm???/min???m??? LV Diastolic Length 2C 7.8 cm LV Systolic Length 2C 6.7 cm M-MODE Aortic Root Diameter MM 3.4 cm LA Systolic Diameter MM 3.3 cm LA Ao Ratio MM 1.0 AV Cusp Separation MM 2.0 cm DOPPLER Mitral E Point Velocity 85.8 cm/s Mitral A Point Velocity 82.1 cm/s Mitral E to A Ratio 1.0 MV Deceleration Time 241.8 ms TR Peak Velocity 207.4 cm/s TR Peak Gradient 17.2 mmHg Right Ventricular Systolic Press 22.2 mmHg FINDINGS Left Ventricle Left ventricular ejection fraction is estimated at 55-60 %.Normal left ventricular systolic function with no obvious regional wall motion abnormalities. Mildly increased left ventricular wall thickness. Right Ventricle Normal right ventricular size and function. Right Atrium Normal right atrial size. Left Atrium Normal left atrial size. Mitral Valve Structurally normal mitral valve. Trace mitral regurgitation. No mitral stenosis. Aortic Valve Trileaflet aortic valve. No aortic valve stenosis or regurgitation. Tricuspid Valve Structurally normal tricuspid valve. Trace tricuspid regurgitation. No tricuspid stenosis. Pulmonic Valve Structurally normal pulmonic valve. No pulmonic stenosis.No pulmonic regurgitation. Pericardium No pericardial or pleural effusion. Aorta Normal size aortic root and proximal ascending aorta. CONCLUSIONS 1. Normal left ventricular size and systolic function 2. Trace mitral and tricuspid regurgitation Previewed by: Dr. Janae Avelar MD (Electronically Signed) Final Date: 20 March 2025 13:11
--- NOTE | 2025-03-20 14:45 | P.HPIM ---
History of Present Illness 44-year-old male admitted to rule out acute on syndromes patient is an alcoholic drinks quite a bit of alcohol every single day came in with epigastric burning sensation retrosternal burning sensation. Patient was also complaining of some pressure-like pain lasted for 15 minutes. Patient has just been drinking alcohol lately without eating or drinking water. EKG did not show any acute ST- T wave changes chest x-ray is do not show any significant abnormality patient's AST and ALT are mildly elevated patient has exercise stress test done in September 2019 did not show any inducible ischemia. Patient was eval by cardiology obtain an echocardiogram echocardiogram did not show any wall motion abnormalities had a normal ejection fraction and patient was cleared from cardiology perspective. Had a lengthy discussion with the family for him to stay to help him with the withdrawals patient wanted to quit alcohol but wanted to wean himself from alcohol by cutting down on the alcohol. I offered him a tapering dose of Librium to go home and instructed we cannot drink alcohol but patient does not want Librium as he does not trust himself to not to drink along with Librium. Extensive cysts counseling regarding alcoholic gastritis alcoholic hepatitis and cessation of alcohol was provided to the patient. REVIEW OF SYSTEMS: All other systems are negative except those mentioned in the HPI PHYSICAL EXAMINATION: GENERAL: The patient is alert and oriented x3, not in any acute distress. Well developed, well nourished. HEENT: Pupils are round and equally reacting to light. EOMI. No scleral icterus. No conjunctival pallor. Normocephalic, atraumatic. No pharyngeal erythema. No thyromegaly. CARDIOVASCULAR: S1 and S2 present. No murmurs, rubs, or gallops. PULMONARY: Chest is clear to auscultation, no wheezing or crackles. ABDOMEN: Soft, nontender, nondistended, normoactive bowel sounds. No palpable organomegaly. MUSCULOSKELETAL: No joint swelling or deformity. EXTREMITIES: No cyanosis, clubbing, or pedal edema. NEUROLOGICAL: Gross neurological examination did not reveal any focal deficits. SKIN: No rashes. Assessment and plan -Chest pain rule out acute coronary syndromes. Patient chest pain is probably secondary to peptic ulcer disease or alcoholic gastritis patient is already on omeprazole I asked him to quit alcohol and increase the dose of omeprazole. - Alcoholic gastritis - Alcoholic hepatitis - Alcohol abuse extensive counseling as mentioned above was provided - Alcohol withdrawal patient is presently having withdrawals but does not want to stay in the hospital wanted to go home and weaning himself off alcohol: And declined any medical treatment for alcohol withdrawal patient's is at bedside as well. Past Medical History Past Medical History: GERD/Reflux, Hypertension, Osteoarthritis (OA), Skin Disorder Additional Past Medical History / Comment(s): elevated liver enzymes, hiatal hernia & umbical hernia, Gout, possible sleep apnea - has never been tested, psoriasis History of Any Multi-Drug Resistant Organisms: C-DIFF Date of last positivie culture/infection: 2004 MDRO Source:: stool Past Surgical History: Orthopedic Surgery Additional Past Surgical History / Comment(s): repair of medial nerve left arm, colonoscopies, EGD Past Anesthesia/Blood Transfusion Reactions: No Reported Reaction Past Psychological History: Depression, PTSD Smoking Status: Current every day smoker Past Alcohol Use History: Daily, Heavy Additional Past Alcohol Use History / Comment(s): 10-15 beers daily, 1ppd since teens Past Drug Use History: None Reported Additional Drug Use History / Comment(s): rare use - Past Family History Mother Family Medical History: No Reported History Medications and Allergies Home Medications Medication Instructions Recorded Confirmed Type HYDROcodone/APAP 10-325MG [[place] 1 tab PO TID 07/25/24 03/19/25 History 10-325] Venlafaxine HCl ER [Effexor XR] 75 mg PO DAILY 12/26/24 03/19/25 History amLODIPine [Norvasc] 5 mg PO DAILY 12/26/24 03/19/25 History Omeprazole 20 mg PO DAILY 03/19/25 03/19/25 History Allergies Allergy/AdvReac Type Severity Reaction Status Date / Time No Known Allergies Allergy Verified 03/19/25 12:49 Physical Exam Vitals: Vital Signs Temp Pulse Pulse Pulse Resp BP BP 03/20/25 08:00 18 03/20/25 07:00 97.8 F 85 16 03/20/25 02:35 81 77 18 03/20/25 00:19 98.1 F 81 18 121/74 03/19/25 17:59 98.1 F 86 20 153/106 BP Pulse Ox 03/20/25 08:00 03/20/25 07:00 163/99 98 03/20/25 02:35 03/20/25 00:19 97 03/19/25 17:59 100 Intake and Output 03/19/25 03/20/25 03/20/25 22:59 06:59 14:59 Intake Total 118 Balance 118 Intake: Oral 118 Other: Voiding Method Toilet Toilet # Voids 1 Weight 73.936 kg 73.936 kg Results CBC & Chem 7: 03/19/25 13:20 03/19/25 13:20 Thrombosis Risk Factor Assmnt - Choose All That Apply Any of the Below Risk Factors Present?: Yes Each Factor Represents 1 point: Age 41-60 years Other Risk Factors: No Other congenital or acquired thrombophilia - If yes, enter type in comment: No Thrombosis Risk Factor Assessment Total Risk Factor Score: 1 Thrombosis Risk Factor Assessment Level: Low Risk
--- NOTE | 2025-03-20 14:46 | P.DS ---
Providers Date of admission: 03/19/25 17:57 Attending physician: Connor Holliday Consults: 03/19/25 17:51 Consult Physician Routine Consulting Provider: Truong Pimentel Consult Reason/Comments: Atypical Chest Pain Do you want consulting provider notified?: Yes, Notify in am Primary care physician: [facility] Course: 44-year-old male admitted to rule out acute on syndromes patient is an alcoholic drinks quite a bit of alcohol every single day came in with epigastric burning sensation retrosternal burning sensation. Patient was also complaining of some pressure-like pain lasted for 15 minutes. Patient has just been drinking alcohol lately without eating or drinking water. EKG did not show any acute ST- T wave changes chest x-ray is do not show any significant abnormality patient's AST and ALT are mildly elevated patient has exercise stress test done in September 2019 did not show any inducible ischemia. Patient was eval by cardiology obtain an echocardiogram echocardiogram did not show any wall motion abnormalities had a normal ejection fraction and patient was cleared from cardiology perspective. Had a lengthy discussion with the family for him to stay to help him with the withdrawals patient wanted to quit alcohol but wanted to wean himself from alcohol by cutting down on the alcohol. I offered him a tapering dose of Librium to go home and instructed we cannot drink alcohol but patient does not want Librium as he does not trust himself to not to drink along with Librium. Extensive cysts counseling regarding alcoholic gastritis alcoholic hepatitis and cessation of alcohol was provided to the patient. REVIEW OF SYSTEMS: All other systems are negative except those mentioned in the HPI PHYSICAL EXAMINATION: GENERAL: The patient is alert and oriented x3, not in any acute distress. Well developed, well nourished. HEENT: Pupils are round and equally reacting to light. EOMI. No scleral icterus. No conjunctival pallor. Normocephalic, atraumatic. No pharyngeal erythema. No thyromegaly. CARDIOVASCULAR: S1 and S2 present. No murmurs, rubs, or gallops. PULMONARY: Chest is clear to auscultation, no wheezing or crackles. ABDOMEN: Soft, nontender, nondistended, normoactive bowel sounds. No palpable organomegaly. MUSCULOSKELETAL: No joint swelling or deformity. EXTREMITIES: No cyanosis, clubbing, or pedal edema. NEUROLOGICAL: Gross neurological examination did not reveal any focal deficits. SKIN: No rashes. Assessment and plan -Chest pain rule out acute coronary syndromes. Patient chest pain is probably secondary to peptic ulcer disease or alcoholic gastritis patient is already on omeprazole I asked him to quit alcohol and increase the dose of omeprazole. - Alcoholic gastritis - Alcoholic hepatitis - Alcohol abuse extensive counseling as mentioned above was provided - Alcohol withdrawal patient is presently having withdrawals but does not want to stay in the hospital wanted to go home and weaning himself off alcohol: And declined any medical treatment for alcohol withdrawal patient's is at bedside as well. Plan - Discharge Summary Discharge Rx Participant: No New Discharge Prescriptions: No Action HYDROcodone/APAP 10-325MG [[place] 10-325] 1 tab PO TID Venlafaxine HCl ER [Effexor XR] 75 mg PO DAILY amLODIPine [Norvasc] 5 mg PO DAILY Omeprazole 20 mg PO DAILY Discharge Medication List HYDROcodone/APAP 10-325MG [[place] 10-325] 1 tab PO TID 07/25/24 [History] Venlafaxine HCl ER [Effexor XR] 75 mg PO DAILY 12/26/24 [History] amLODIPine [Norvasc] 5 mg PO DAILY 12/26/24 [History] Omeprazole 20 mg PO DAILY 03/19/25 [History] Follow up Appointment(s)/Referral(s): Liam Miramontes DO [Primary Care Provider] - 3 Days Discharge/Stand Alone Forms: AA Lisa Mullen, Outpatient Counseling, In Substance Abuse Facilities
== END 2025-03-20 14:55 | disposition home or self-care (01) ==
LOC: EC 12:38 → 6NMEDSUR 17:57
PROVIDERS: ADMIT Hospitalist; ATTEND Hospitalist
DX: R07.89 Other chest pain (principal); F10.120 Alcohol abuse with intoxication, uncomplicated; F10.139 Alcohol abuse with withdrawal, unspecified; K70.10 Alcoholic hepatitis without ascites; K29.20 Alcoholic gastritis without bleeding; I10 Essential (primary) hypertension; K21.9 Gastro-esophageal reflux disease without esophagitis; F32.A Depression, unspecified; F43.10 Post-traumatic stress disorder, unspecified; F17.200 Nicotine dependence, unspecified, uncomplicated; Y90.6 Blood alcohol level of 120-199 mg/100 ml; Z79.899 Other long term (current) drug therapy
CPT/HCPCS: 96361; 96374; 99285; 36415; 93005; 93306; 80053; 84484; 85025; 80320; 71046; G0378 ×2; J2405